=== PATIENT | female | born 1950 | race Caucasian/White ===

== ENCOUNTER 2016-10-22 06:00 | Inpatient (IN) | payer MEDICARE, OTHER ==
[2016-10-16 12:16] LABS: ASCORBIC ACID (UR NOT ORDER) NEG (NEG); BILIRUBIN, URINE NEGATIVE (NEG); KETONE, URINE NEGATIVE (NEG); LEUKOCYTE ESTERASE(NOT OR NEG (NEG); WBC (NOT ORDERED) (RFLEX) 2 (0-5)
[2016-10-16 12:52] LABS: BASOPHILS 0.6 %; BASOPHILS ABSOLUTE 0.03 10/3/uL (0.0-0.16); EOSINOPHILS 5.2 %; EOSINOPHILS ABSOLUTE 0.28 10/3/uL (0.0-0.53); HEMATOCRIT 41.8 % (36.0-48.0); HEMOGLOBIN 13.9 g/dL (12.0-16.0); IMMATURE GRANULOCYTES 0.2 %; IMMATURE GRANULOCYTES ABSOLUTE 0.01 10/3/uL (0.0-0.11); LYMPHOCYTES 30.9 %; LYMPHOCYTES ABSOLUTE 1.68 10/3/uL (0.67-4.30); MEAN CORPUS HGB CONC 33.3 g/dL (32.0-36.0); MEAN CORPUSCULAR HEMOGLOB 33.2 pg (26.0-34.0); MEAN CORPUSCULAR VOLUME 99.8 fL (80-100); MEAN PLATELET VOLUME 11.1 fL (9.2-13.0); MONOCYTES 7.7 %; MONOCYTES ABSOLUTE 0.42 10/3/uL (0.21-1.20); NEUTROPHILS 55.4 %; NEUTROPHILS ABSOLUTE 3.01 10/3/uL (2.02-8.40); PLATELET COUNT 225 10/3/uL (150-400); RBC DISTRIBUTION WIDTH 13.3 % (12.0-16.0); RED CELL COUNT 4.19 10/6/uL (4.0-5.6); WHITE BLOOD CELLS 5.4 10/3/uL (4.5-10.5)
[2016-10-16 12:53] LABS: MANUAL DIFF NO %
[2016-10-16 13:00] LABS: INTERNATIONAL NORMAL RATI 1.1 UNITS (-); PROTIME (NOT ORD) 13.6 SEC (12.0-14.5)
[2016-10-16 13:15] LABS: % IRON SAT 27 % (20-50); A/G RATIO 1.1 (0.7-1.9); ALBUMIN 3.5 G/DL (3.5-5.0); ALKALINE PHOSPHATASE 42 U/L (45-117); BUN (BLOOD UREA NITROGEN) 20 MG/DL (6-23); CHLORIDE, SERUM 106 MMOL/L (96-112); CO2 (CARBON DIOXIDE) 26 MMOL/L (24-34); CREATININE 1.35 MG/DL (0.55-1.02); GFR AFRICAN AMERICAN 47 ML/MIN (>=60); GFR NON AFRICAN AMERICAN 41 ML/MIN (>=60); GLOBULIN 3.1 G/DL (2.5-4.1); GLUCOSE, SERUM 149 MG/DL (60-99); IRON BINDING CAPACITY 363 MCG/DL (225-410); IRON, SERUM 97 MCG/DL (35-150); POTASSIUM, SERUM 4.2 MMOL/L (3.5-5.3); SGOT(AST) 16 U/L (5-40); SGPT(ALT) 17 U/L (5-65); SODIUM, SERUM 143 MMOL/L (135-148); TOTAL BILIRUBIN 0.3 MG/DL (0-1.2); TOTAL PROTEIN 6.6 G/DL (6.0-8.5)
--- NOTE | ~2016-10-22 | CN ---
Consultation Report [facility] [address] [place]. [address] NAME: GALINDO SNOW : 49 STATUS : ADM IN PAT#: [id number] AGE: 66 ADM/REG DATE : 10/22/16 MR#: [id number] REPORT SERV DATE: 10/28/16 DICTATED BY: KOREY CISNEROS DATE: 10/28/16 REPORT STATUS : Draft TRANSCRIBED BY: MODL DATE: 10/28/16 INFECTIOUS DISEASE CONSULT DATE OF CONSULTATION: REASON FOR REFERRAL: Evaluation and treatment of possible respiratory infection. HISTORY OF PRESENT ILLNESS: The patient is a 66-year-old female. She has a history of hypertension, chronic obstructive pulmonary disease, tobacco abuse, and per the records I have here, she smoked until the time of admission. She has gastroesophageal reflux disease, chronic back pain, coronary artery disease, aortic stenosis. She developed chest pain early this year and underwent an elective cardiac cath, which showed two-vessel coronary artery disease, aortic stenosis, and some mitral valve disease. On 10/22/2016, she was admitted by Dr. Grant electively and underwent a coronary artery bypass grafting x1, aortic valve replacement, and a mitral valve repair. She received appropriate preoperative antibiotics. She was extubated postoperatively, but on 10/25/2016, she developed respiratory distress, necessitating repeat intubation and placement on the ventilator. She has remained on the ventilator since, and efforts to wean her thus far have been unsuccessful. Her chest x-rays have shown some bilateral changes suggestive of atelectasis and it does look slightly worse today. On the evening of 10/26/2016, she had a temperature to 100.5, bladder temp of 100 even at 7 o'clock in the morning on 10/27/2016, but temperatures have been under 99.8 since then bladder temp. Her white blood cell count was elevated even at admission of 11.7, went up to 16.2 postoperatively, was back down to 11.1 today with hematocrit 29.6, platelets 165, unremarkable differential. A sputum was sent in the form of a tracheal aspirate on 10/25/2016 and the gram stain showed only 10 to 25 white cells and occasional gram-positive cocci. No gram negative rods. It grew sparse Klebsiella oxytoca that was relatively sensitive. PAST MEDICAL HISTORY: Otherwise unremarkable. MEDICATIONS: She is on antibiotic at present. ALLERGIES: NO KNOWN ANTIMICROBIAL ALLERGIES. SOCIAL HISTORY: She previously lived at home with family. She is single, did smoke. Has no history of alcohol or substance abuse. FAMILY HISTORY: Noncontributory. PHYSICAL EXAMINATION: GENERAL: Ill-appearing elderly female, lying quietly in bed. She is sedated, orotracheal intubated. VITAL SIGNS: Her temperature as previously mentioned. Her present pulse is 84, respirations 26, blood pressure 94/52, her weight is 75 kg. Consultation Report [address] [address] NAME: GALINDO SNOW : 49 STATUS : ADM IN [facility]#: [id number] AGE: 66 ADM/REG DATE : 10/22/16 MR#: [id number] REPORT SERV DATE: 10/28/16 DICTATED BY: KOREY CISNEROS DATE: 10/28/16 REPORT STATUS : Draft TRANSCRIBED BY: OSKAR DATE: 10/28/16 HEENT: Sclerae are clear. Unable to visualize her mouth. NECK: Supple. LUNGS: There are bilateral respiratory wheezes and rhonchi heard diffusely in all lung rey. HEART: Regular rate and rhythm. Sternal incision looks good. ABDOMEN: Soft, nontender. Positive bowel sounds. No rashes noted. LABORATORY DATA: White blood cell count as previously described. BUN and creatinine 43 and 1.04. IMPRESSION: Respiratory distress in a postoperative patient. At this time, I doubt that she has a bacterial pneumonia and I suspect that the sputum culture is a colonization and not a true infection. She is however, very vulnerable and this will need to be watched and re- evaluated very closely. RECOMMENDATIONS: 1. We will hold antibiotics for now. 2. Her procalcitonin has been ordered. If that is elevated, we will reconsider the antibiotic decision. 3. We will follow the patient closely with you. I appreciate very much your consulting on this patient. DAILY Korey Cisneros M.D. / [id number] CC: MD Diogenes Butt
--- NOTE | ~2016-10-22 | OP ---
Record Of Operation [facility] [address] [place]. [address] NAME: GALINDO SNOW : 49 STATUS : ADM IN [facility]#: [id number] AGE: 66 ADM/REG DATE : 10/22/16 MR#: [id number] REPORT SERV DATE: 11/12/16 DICTATED BY: IHSAN PATEL DATE: 11/12/16 REPORT STATUS : Draft TRANSCRIBED BY: MODL DATE: 11/12/16 DATE OF PROCEDURE: 11/12/2016 INDICATION FOR PROCEDURE: The patient with ARDS, worsening infiltrates on mechanical ventilation, desaturation. PREOPERATIVE DIAGNOSIS: Possible healthcare-associated pneumonia. POSTOPERATIVE DIAGNOSIS: Possible healthcare-associated pneumonia. PROCEDURE NOTE: The patient was in the CV ICU. By tracheostomy, we were able to insert the bronchoscope after giving patient 100 mcg of fentanyl, placing a small amount of lidocaine down the trachea. We were able to examine the complete tracheobronchial tree for which we found some suction trauma in the right mainstem, but otherwise minimal sputum in the right lower lobe and more significant sputum on the left side. We were able to clean out this secretions, but prior to that, we went ahead and did a BAL of the left upper lobe anterior sub-basal segment. We were able to place one aliquot in that area with a return around 20 mL. Minimal fluid was left in the airway as this was suctioned. We did notice that patient had copious amount of tenacious secretions upon suctioning in the lower lobes bilaterally. PLAN: Please follow up BAL cultures and cytology. Will need to start Mucomyst along with chest PT. We will discontinue the fentanyl drip to allow the patient to be more awake. This is in hopes to increase mucociliary clearance. HFQ/MODL Ihsan Patel MD / [id number] CC: MD Diogenes Butt MD
--- NOTE | ~2016-10-22 | OP ---
Record Of Operation [facility] [address] [place]. [address] NAME: GALINDO FLORES : 49 STATUS : ADM IN PAT#: [id number] AGE: 66 ADM/REG DATE : 10/22/16 MR#: [id number] REPORT SERV DATE: 10/22/16 DICTATED BY: HORACIO PATTON DATE: 10/22/16 REPORT STATUS : Draft TRANSCRIBED BY: MODL DATE: 10/22/16 DATE OF PROCEDURE: 10/22/2016 ATTENDING PHYSICIAN: Dr. Horacio Patton. PROMOTIONS OFFICER: Jerry Cerrato. ANESTHESIOLOGIST: Dr. Lionel Gloria. REFERRING PHYSICIAN: Jose Roberto Thompson M.D., F.A.C.C. PREOPERATIVE DIAGNOSES: 1. Moderate to severe symptomatic aortic stenosis. 2. Moderate to severe mitral regurgitation. 3. Two vessel coronary artery disease. 4. Progressive angina. 5. COPD. 6. Hypertension. 7. Tobacco abuse. POSTOPERATIVE DIAGNOSES: 1. Moderate to severe symptomatic aortic stenosis. 2. Moderate to severe mitral regurgitation. 3. Two vessel coronary artery disease. 4. Progressive angina. 5. COPD. 6. Hypertension. 7. Tobacco abuse. OPERATION AND PROCEDURE PERFORMED: 1. Median sternotomy. 2. Extracorporeal circulation. 3. Elective coronary artery bypass grafting x1 with reverse greater saphenous vein graft to the LAD. A 23 mm MagnaEase aortic valve replacement. 4. Mitral valve repair with 26 mm Physio II annuloplasty ring and closure of the cleft between P2 and P3. Left atrial appendage clip. 5. Transesophageal echo. 6. Endoscopic vein harvest of the right leg. 7. Rigid external fixation of the sternum with Sternalock blue system. 8. Prevena dressing placement. COMPLICATIONS: None. TUBES AND DRAINS: Trqnox-gwmc-Xrfiep Malcolm to posterior pericardium, 32 straight mediastinal chest tube. Atrial and ventricular pacing wires. Record Of Operation [facility] [address] [place]. [address] NAME: GALINDO FLORES : 49 STATUS : ADM IN PAT#: [id number] AGE: 66 ADM/REG DATE : 10/22/16 MR#: [id number] REPORT SERV DATE: 10/22/16 DICTATED BY: HORACIO PATTON DATE: 10/22/16 REPORT STATUS : Draft TRANSCRIBED BY: MODL DATE: 10/22/16 POSTOPERATIVE CONDITION: Stable to CVICU. She was weaned from cardiopulmonary bypass on no inotropic support. INTRAOPERATIVE FINDINGS: Transesophageal echo showed severe MR. Moderate to severe aortic stenosis. Preserved EF post bypass post valve replacement. The mean gradient across the mitral valve was 1 mmHg. Post bypass, aortic valve gradient was 7 mm mean gradient. There was no perivalvular leak. The valve was well seated. DETAILS OF CARDIOPULMONARY BYPASS GRAFTIN. Graft #1, reverse greater saphenous vein graft to LAD. This was a 2 mm target with excellent flow both pre and post bypass. There was no vessel in the distal circumflex to graft. This was the area of the complete chronic total occlusion. Anatomic findings were a trileaflet aortic valve with moderately calcified leaflets in anulus. The mitral valve had slightly thickened and retracted posterior leaflet with mildly calcified mitral anulus. Mitral valve repair was accomplished with a 26 mm Physio II ring with 11 sutures, annuloplasty sutures and a closure of a cleft between P2 P3 with a 5-0 Washington-Benji suture. Aortic valve replacement was performed with a 23 mm Magna Ease with a 16 pledgeted supraannular sutures. Annuloplasty and valve replacement sutures were secured with core knot. INDICATIONS FOR PROCEDURE: Ms. Flores is a 66-year-old female with a history of progressive angina and shortness of breath who underwent cardiac catheterization which revealed approximately 50% proximal LAD lesion and this total distal occluded circumflex. In addition, she has had known aortic stenosis with progression of her disease to a valve area of approximately 1 cm2 with the velocity across the valve of 280 cm/second. Her mitral valve was found to be moderate to severely leaky on her heart catheterization with moderate leak on surface echo. The patient was seen in the preoperative clinic. Risks, benefits, and alternatives including but not limited to, bleeding, infection, stroke, , heart attack, and need for future operations were discussed with the patient. Dental extraction was performed beforehand. She was referred for her oral surgeon and the patient was taken to the operating room after her preoperative evaluation was complete. DETAILS OF PROCEDURE: The patient was brought to the operating room, placed supine on the operating room table. After satisfactory induction of general endotracheal anesthesia, she was prepped and draped in the usual sterile fashion. Working simultaneously, median sternotomy was performed while the endoscopic vein harvest was performed from the left exceed the from the right leg. Skin and subcutaneous tissues were divided. Clavipectoral fascia was divided. The sternum was divided in the midline. Hemostasis was obtained. The sternal retractor was placed. Thymic tissue was divided in the midline up to the innominate vein. Pericardium was opened. Pericardial well was created. The ascending aorta was cannulated through dual pursestring at the base of the innominate artery. Antegrade root vent cardioplegia tack was placed and a dual stage venous cannula was placed. Systemic heparinization was achieved prior to cannulation. The vein was brought up and inspected. After documentation of an adequate ACT, cardiopulmonary bypass was initiated but the heart was inspected. The LAD was an excellent target. The distal . Circumflex had no target that was revascularizable the Record Of Operation [facility] [address] [place]. [address] NAME: GALINDO FLORES : 49 STATUS : ADM IN [facility]#: [id number] AGE: 66 ADM/REG DATE : 10/22/16 MR#: [id number] REPORT SERV DATE: 10/22/16 DICTATED BY: HORACIO PATTON DATE: 10/22/16 REPORT STATUS : Draft TRANSCRIBED BY: OSKAR DATE: 10/22/16 The preoperative intraoperative ESTELA was carefully evaluated with the help of Dr. Gloria and decision was made to perform a repair of the mitral valve with a replacement of the aortic valve. Cross-clamp was brought up. The heart was arrested with cold antegrade cardioplegia and using 1.5 L of shelter cardioplegia. After arrest, the attention was turned to the left atrial appendage. The left atrial appendage was sized to a 35 mm AtriClip. An AtriClip was then applied to the base of the appendage. Two laps were placed under the heart and the LAD was opened. Vein was brought up reversed and a running continuous anastomosis was performed using 8-0 Surgipro. This was checked for hemostasis, felt to be hemostatic. The attention was then turned to the mitral valve. The Sondergaard's groove was developed and left atriotomy was performed. A self retaining retractor from Simpson was placed and the valve was inspected. The posterior leaflet appeared to be slightly retracted. There was some calcification in the anulus at the posterolateral commissure. The annulus was sized to a 26 mm Physio II annuloplasty ring. Eleven sutures were placed. Annuloplasty ring was secured and the valve was tested and there appeared to be a mild leak coming from the area of P2 P3 sub commissure. This was closed with a single 5-0 Washington-Benji suture. A Miles was placed across the valve to act as an LV vent. The left atrium was then closed in a double layer of 3-0 Prolene. Aortotomy was performed in a standard hockey-stick fashion. Aortic retraction sutures were placed and the valve was inspected. The valve is a trileaflet aortic valve with moderately to severely calcified leaflets and anulus. The valve leaflets were excised. The anulus was debrided. This was sized to a 23 mm valve. 16 sutures were placed to position the valve in the supraannular position. These were placed up through the sewing ring of the valve. Valve was lowered into position and anchored in position using cor knots. The valve was checked. It was felt to be well seated. Aortotomy was then closed using a double layer 4-0 Prolene pledgets at the corners. De-airing maneuvers performed and the proximal anastomosis was then performed distal to the aortotomy and the area of adventitia was cleared off the aorta, was incised with a with an 11 blade and enlarged with a 5.2 mm punch. The vein was cut to length, spatulated and a running continuous anastomosis was performed using 6-0 Prolene. Vein graft marker was placed. Atrial and ventricular pacing wires were placed. De-airing maneuvers were performed. The cross-clamp was removed. The patient returned to normal sinus rhythm in a paced fashion over her sinus rhythm. She was able to be weaned from cardiopulmonary bypass without incident. Prior to leaving the room, she was started on 5 mcg per kilo per minute of dobutamine. After she was weaned from cardiopulmonary bypass, protamine was administered. Hemostasis was obtained. She was decannulated. All cannulation sites were oversewn with 4- 0 Prolene. The pericardium was loosely reapproximated over the right ventricle and the ascending aorta. A 24-Slovenian Malcolm was placed in the posterior pericardium, 32-Slovenian chest tube was placed under the sternum. The sternum was then reapproximated after meticulous hemostasis was obtained using stainless steel sternal wires. Some of these were double wires. Two X plates were placed on the body of the sternum and one 180 plate was placed on the body in the manubrium and a total of twenty 14 mm screws were used. Pectoral flaps were fashioned to the edge of the sternum in order to accommodate the plates. The clavipectoral fascia was then reapproximated over the plates using running #1 StrataFix. Subcutaneous tissues were closed using running #1 StrataFix. The skin was closed using a 2-0 Quill. Prevena dressing was placed over the top of this. The patient was transferred to CVICU in critical, stable condition. Record Of Operation [facility] [address] [place]. [address] NAME: GALINDO FLORES : 49 STATUS : ADM IN [facility]#: [id number] AGE: 66 ADM/REG DATE : 10/22/16 MR#: [id number] REPORT SERV DATE: 10/22/16 DICTATED BY: HORACIO PATTON DATE: 10/22/16 REPORT STATUS : Draft TRANSCRIBED BY: OSKAR DATE: 10/22/16 [facility]/OSKAR Horacio Patton MD / [id number] CC: MD Diogenes Butt MD
--- NOTE | ~2016-10-22 | OP ---
Record Of Operation [facility] [address] [place] [address] NAME: GALINDO SNOW : 49 STATUS : ADM IN PAT#: [id number] AGE: 66 ADM/REG DATE : 10/22/16 MR#: [id number] REPORT SERV DATE: 11/15/16 DICTATED BY: IHSAN PATEL DATE: 11/14/16 REPORT STATUS : Draft TRANSCRIBED BY: MODL DATE: 11/14/16 DATE OF PROCEDURE: 11/14/2016 PROCEDURE: Central line insertion. INDICATION FOR PROCEDURE: The patient is newly septic, unclear of the current source, chest x-ray is about the same, concerned of an old PICC line, and therefore, initiation of a new central line is needed. PREOPERATIVE DIAGNOSIS: Septic shock. POSTOPERATIVE DIAGNOSIS: Septic shock. PROCEDURE NOTE: The patient was placed in the Trendelenburg position. Using an ultrasound guidance, we were able to find an adequate insertion site. We sterilized and draped the area in standard fashion, using lidocaine, we numbed up the area. We placed the finer needle underneath ultrasound guidance in the right IJ and inserted a guidewire. We then dilated and placed a triple lumen catheter with return of venous blood in all ports. We then sutured and secured this in standard fashion. Of note, due to elevated INR, we were careful in choosing the site and not the subclavian site and furthermore, emergent need for this procedure was noted. OUTCOME: Successful right IJ insertion of triple-lumen catheter. HFQ/OSKAR Ihsan Patel MD / [id number] CC: MD Diogenes Butt
--- NOTE | ~2016-10-22 | CN ---
Consultation Report [facility] [address] [place]. [address] NAME: GALINDO SNOW : 49 STATUS : ADM IN PAT#: [id number] AGE: 66 ADM/REG DATE : 10/22/16 MR#: [id number] REPORT SERV DATE: 10/24/16 DICTATED BY: JAYME ADKINS DATE: 10/24/16 REPORT STATUS : Draft TRANSCRIBED BY: MODL DATE: 10/24/16 CONSULTATION DATE OF CONSULTATION: 10/24/2016 HISTORY OF PRESENT ILLNESS: A 66-year-old white female, whom we were asked to come see by Dr. Grant because of shortness of breath and hypoxia. The patient was admitted on 10/22/2016 after she had an elective CABG x1, mitral valve repair. The patient extubated the same day after surgery. She has been having increasing oxygen requirement. She is currently on 10 L/minute high-flow nasal cannula, saturating around 91%. Chest x-ray shows some worsening pulmonary edema. She is currently getting half-normal saline at 75 mL an hour. Her in's and out's are positive, a little over 2 L since she has been in the ICU. She is not on any antibiotics, and she has not had any significant fever over the past 48 hours. She does complain of shortness of breath and having a little bit of nonproductive cough. The patient was smoking up until the time of surgery. She seems a little bit confused and being able to answer questions appropriately. I was actually not able to get much history out of her even though she was awake and maintaining her airway okay. REVIEW OF SYSTEMS: Unable to be obtained. PAST MEDICAL HISTORY: Coronary artery disease, aortic stenosis, hypertension, COPD, arthritis, GERD, back pain. SOCIAL HISTORY: One pack per day cigarettes, and she has smoked since she was a teenager. FAMILY HISTORY: Noncontributory. ALLERGIES: MORPHINE, CODEINE, AND TETANUS TOXOID. HOME MEDICATIONS: Reviewed. She is on a Ventolin inhaler at home. PHYSICAL EXAMINATION: VITAL SIGNS: Per nursing flow sheet. GENERAL: Mildly short of breath. ENT: Normocephalic and atraumatic. Pupils are equal. NECK: Trachea midline. HEART: Sinus rhythm. No murmurs. CHEST: Post-sternotomy dressing. LUNGS: Bilateral wheeze with some coarse breath sounds. GI: Soft, nontender, nondistended. EXTREMITIES: No significant edema. : Miles catheter in place with yellow urine. Consultation Report [facility] [place]. [address] NAME: GALINDO SNOW : 49 STATUS : ADM IN PAT#: [id number] AGE: 66 ADM/REG DATE : 10/22/16 MR#: [id number] REPORT SERV DATE: 10/24/16 DICTATED BY: JAYME ADKINS DATE: 10/24/16 REPORT STATUS : Draft TRANSCRIBED BY: OSKAR DATE: 10/24/16 LABORATORIES: Radiology studies reviewed. ASSESSMENT AND PLAN: 1. Postoperative hypoxia. 2. Acute pulmonary edema. 3. Atelectasis. 4. Status post CABG x1, mitral valve repair, aortic valve replacement. 5. Probable chronic obstructive pulmonary disease, continue oxygen and keep sats 90% to 92% as a goal. She is encouraged to quit smoking. She does have an incentive spirometer. We will change her nebulizer medicines from albuterol over to DuoNeb every four hours around the clock. We will have EzPAP to be done with her nebulizer treatments. We will give her Lasix 20 mg IV times two doses 12 hours apart. We will stop her IV fluids for now. We will also add Brovana and Pulmicort to her nebulizer treatments. We will follow clinically. CEP/OSKAR Jayme Adkins DO / [id number] CC: MD Diogenes Butt MD
--- NOTE | ~2016-10-22 | CN ---
Consultation Report [facility] [address] [place]. [address] NAME: GALINDO SNOW : 49 STATUS : ADM IN PAT#: [id number] AGE: 66 ADM/REG DATE : 10/22/16 MR#: [id number] REPORT SERV DATE: 10/22/16 DICTATED BY: BLAZE PRESCOTT DATE: 10/22/16 REPORT STATUS : Draft TRANSCRIBED BY: MODL DATE: 10/22/16 CARDIOLOGY CONSULTATION DATE OF CONSULTATION: 10/22/2016 REASON FOR CONSULTATION: Routine postop cardiac consultation. HISTORY OF PRESENT ILLNESS: The patient is a 66-year-old white female, who was seen by Dr. Thompson in July of this year with symptoms of progressive angina. A right and left heart catheterization on 08/06/2016 showed two-vessel coronary artery disease with CT of mid dominant left circumflex and borderline lesion in the proximal LAD. There was moderate-to- severe aortic stenosis and tqxqgrdy-zo-pfypkn mitral regurgitation with tmel-tx-zhosuskf left ventricular dysfunction. The patient is now postop aortic valve replacement, mitral valve repair, and coronary artery bypass grafting x1 to the LAD as well as ligation of left atrial appendage. Currently, the patient is hemodynamically stable and on low-dose dobutamine at 2.5 mcg/kg/minute. PAST MEDICAL HISTORY: Significant for coronary artery disease, aortic stenosis, central hypertension, chronic obstructive pulmonary disease, arthritis, and chronic back pain as well as gastroesophageal reflux disease. SOCIAL HISTORY: The patient is a one-pack per day smoker and has smoked since the age of 17. FAMILY HISTORY: Noncontributory secondary to the patient being adopted. REVIEW OF SYSTEMS: Unable to be obtained at this time because the patient is intubated and sedated. PHYSICAL EXAMINATION: VITAL SIGNS: Blood pressure is 98/54, heart rate is 79, ventricular paced. GENERAL APPEARANCE: The patient is a well-developed and well-nourished female, in no acute distress. HEENT: Unremarkable, except for ET tube in place. CHEST: Remarkable for coarse lung sounds bilaterally. CARDIOVASCULAR: PMI is nondisplaced. S1 is normal. S2 is narrowly split. No gallop is present. ABDOMEN: Soft with positive bowel sounds. EXTREMITIES: Showed no cyanosis, clubbing, or edema. SKIN: Warm and dry with no pallor or icterus. NEURO/PSYCH: The patient has just been weaned off sedation and is currently very drowsy, but opens her eyes to verbal stimuli. LABORATORY AND DIAGNOSTIC DATA: Chemistry panel shows sodium 144, potassium 3.9, BUN 20, creatinine 1.3, magnesium 3.3. Chest x-ray shows mild venous congestion and mild atelectasis, stable postsurgical changes. Consultation Report [address] [place]. [address] NAME: GALINDO SNOW : 49 STATUS : ADM IN PAT#: [id number] AGE: 66 ADM/REG DATE : 10/22/16 MR#: [id number] REPORT SERV DATE: 10/22/16 DICTATED BY: BLAZE PRESCOTT DATE: 10/22/16 REPORT STATUS : Draft TRANSCRIBED BY: OSKAR DATE: 10/22/16 IMPRESSION: 1. Nonrheumatic aortic stenosis, now postop day 0 after bioprosthetic aortic valve replacement. 2. Nonrheumatic mitral regurgitation status post mitral valve repair and ligation of the left atrial appendage. 3. Coronary artery disease status post coronary artery bypass grafting to the LAD. 4. Essential hypertension. 5. Tobacco abuse. 6. Chronic obstructive pulmonary disease. PLAN: 1. Wean ventilator and cardiac drips as tolerated. 2. Continue routine postoperative orders as per Cardiothoracic Surgery. We will continue to follow the patient with you. Thank you very much for this consultation. MALAB/OSKAR Blaze Prescott NP / [id number] CC: MD Diogenes Butt MD Steven Stubblefield, M.D., F.A.C.C.
--- NOTE | ~2016-10-22 | EEG ---
Electroencephalogram [address] [place]. [address] NAME: GALINDO SNOW : 49 STATUS : ADM IN [facility]#: [id number] AGE: 66 ADM/REG DATE : 10/22/16 MR#: [id number] REPORT SERV DATE: 11/05/16 DICTATED BY: JAMES COBOS DATE: 11/05/16 REPORT STATUS : Draft TRANSCRIBED BY: MODL DATE: 11/05/16 LOCATION OF THE PATIENT: CVICU, bed 17. EEG NUMBER: [id number]. INTERPRETING PHYSICIAN: James Cobos M.D. of neurology. REASON FOR EEG: Encephalopathy, altered mental status, rule out seizures. 23 surface electrodes, 10-20 international placement was used. The patient was initially sedated with Precedex. The sedation was discontinued at the beginning of the EEG. The background activity consisted of poorly organized, moderate to higher voltage 5 cycles per second located in the posterior head regions. Underlying slower frequencies are also noted during drowsiness and sleep. The patient was noted to be awake, drowsy, and asleep. Video recording was utilized. Photic stimulation was performed. No significant asymmetry of cerebral activity was present. EEG remained diffusely slow and disorganized. Photic stimulation did not bring out additional abnormalities. environmental monitoring technician showed sinus rhythm rate of approximately 76 beats per minute. No paroxysmal or epileptiform activity was seen during this study. No significant asymmetry of cerebral activity was present. IMPRESSION: ABNORMAL EEG CHARACTERIZED BY PRESENCE OF DIFFUSE SLOWING OF CEREBRAL ACTIVITY. ABOVE DESCRIBED PATTERN MAY REPRESENT DIFFUSE CEREBRAL DYSFUNCTION. CLINICAL CORRELATION IS RECOMMENDED. ISABEL/OSKAR James Cobos MD / [id number] CC: MD Diogenes Butt MD
--- NOTE | ~2016-10-22 | OP ---
Record Of Operation [facility] [address] [place] [address] NAME: GALINDO SNOW : 49 STATUS : ADM IN [facility]#: [id number] AGE: 66 ADM/REG DATE : 10/22/16 MR#: [id number] REPORT SERV DATE: 10/25/16 DICTATED BY: JAYME ADKINS DATE: 10/25/16 REPORT STATUS : Draft TRANSCRIBED BY: MODL DATE: 10/25/16 DATE OF PROCEDURE: 10/25/2016 DIAGNOSIS: Respiratory failure. PROCEDURE: Endotracheal intubation. DESCRIPTION: The patient was in the CVICU bed #17 at the time of the procedure. Called down because of ongoing respiratory distress and O2 desaturation despite 100% FiO2 Vapotherm. The patient was sedated with 20 mg of etomidate, hyperoxygenated between 96% to 97%. Using a MAC 4 blade, I was able to place a size 8 ET tube without any difficulty. No complications and vocal cords appear normal. Chest x-ray is pending. CEP/OSKAR Jayme Adkins DO / [id number] CC: MD Diogenes Butt MD
--- NOTE | ~2016-10-22 | DS ---
Discharge Summary [address] [place]. [address] NAME: GALINDO SNOW : 49 STATUS : DIS IN PAT#: [id number] AGE: 66 ADM/REG DATE : 10/22/16 MR#: [id number] REPORT SERV DATE: 02/05/17 DICTATED BY: HORACIO PATTON DATE: 02/05/17 REPORT STATUS : Draft TRANSCRIBED BY: MODL DATE: 02/05/17 ADMISSION DATE: 10/22/2016 DISCHARGE DATE: 11/19/2016 SUMMARY ADMITTING DIAGNOSES: 1. Moderate to severe symptomatic aortic stenosis. 2. Moderate to severe mitral regurgitation. 3. Two-vessel coronary artery disease. 4. Progressive angina. 5. Chronic obstructive pulmonary disease. 6. Hypertension. 7. Tobacco abuse. DISCHARGE DIAGNOSES: 1. Moderate to severe symptomatic aortic stenosis. 2. Moderate to severe mitral regurgitation. 3. Two-vessel coronary artery disease. 4. Progressive angina. 5. Chronic obstructive pulmonary disease. 6. Hypertension. 7. Tobacco abuse. 8. . OPERATION PROCEDURE PERFORMED: 1. Coronary artery bypass grafting x1, 23 mm MagnaEase aortic valve replacement. Mitral valve repair with 26 mm Physio II annuloplasty ring. 2. Permanent pacemaker placement. 3. Endotracheal intubation. 4. Tracheostomy. 5. Bronchoscopy. DISCHARGE MEDICATIONS: None. CONDITION AT DISCHARGE: . HOSPITAL COURSE: The patient was admitted to the hospital for an elective cardiac surgical procedure, underwent the procedure, was initially stable in the ICU, then developed progressive pulmonary failure which progressed to multi-system organ failure. The family was consulted. Their wishes were followed. They wished for Palliative Care. Palliative Care was consulted and the patient underwent comfort measures and ultimately the patient was weaned from all vasoactive substances and oxygen and ultimately was pronounced at 1635 hours on 11/19/2016. Discharge Summary [facility] [place]. [address] NAME: GALINDO SNOW : 49 STATUS : DIS IN PAT#: [id number] AGE: 66 ADM/REG DATE : 10/22/16 MR#: [id number] REPORT SERV DATE: 02/05/17 DICTATED BY: HORACIO PATTON DATE: 02/05/17 REPORT STATUS : Draft TRANSCRIBED BY: MODL DATE: 02/05/17 [facility]/MODL Horacio Patton MD / [id number] CC: MD Diogenes Butt MD
--- NOTE | ~2016-10-22 | CN ---
Consultation Report [facility] [address] [place]. [address] NAME: GALINDO FLORES : 49 STATUS : ADM IN PAT#: [id number] AGE: 66 ADM/REG DATE : 10/22/16 MR#: [id number] REPORT SERV DATE: 11/11/16 DICTATED BY: ANGIE TORRES DATE: 11/11/16 REPORT STATUS : Draft TRANSCRIBED BY: MODL DATE: 11/11/16 GI CONSULTATION DATE OF CONSULTATION: 11/09/2016 REASON FOR CONSULTATION: Protein-calorie malnutrition. HISTORY OF PRESENT ILLNESS: Ms. 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 She recently had a coronary artery bypass grafting as well as MVR and AVR performed at 10/25/2016 and had a pacer placed on 11/04/2016. She has a history of coronary artery disease, COPD, hypertension, and a history of tobacco use. She has plans for a tracheostomy tomorrow with ENT and GI has been consulted for PEG tube placement. PAST MEDICAL HISTORY: Coronary artery disease, COPD, and hypertension. PAST SURGICAL HISTORY: CABG, MVR, AVR, and pacer placement. SOCIAL HISTORY: Tobacco use. Denies any alcohol or drug use. Son, Cris Flores, is her power of personal injury attorney. . MEDICATIONS: Reviewed. ALLERGIES: REVIEWED. PHYSICAL EXAMINATION: GENERAL: The patient is a female who appears older than her stated age, on ventilator, intubated and sedated. CARDIAC: S1 and S2. LUNGS: Adventitious breath sounds. ABDOMEN: Obese and soft. Bowel sounds normoactive. LABORATORY DATA: Reviewed. IMPRESSION AND PLAN: Protein-calorie malnutrition. We will plan for PEG tube placement tomorrow. I have spoken to the patient's son, Cris Flores, and reviewed the indications of the procedure, risks, benefits, and alternatives with him. Questions and concerns were addressed. The patient will require ceftriaxone 2 g IV x1 prior to her procedure. CS/MODL Consultation Report [facility] [address] [place]. [address] NAME: GALINDO FLORES : 49 STATUS : ADM IN PAT#: [id number] AGE: 66 ADM/REG DATE : 10/22/16 MR#: [id number] REPORT SERV DATE: 11/11/16 DICTATED BY: ANGIE TORRES DATE: 11/11/16 REPORT STATUS : Draft TRANSCRIBED BY: OSKAR DATE: 11/11/16 Angie Torres MD / [id number] CC: MD Diogenes Butt MD
--- NOTE | ~2016-10-22 | CN ---
Consultation Report [facility] [address] [place]. [address] NAME: GALINDO FLORES : 49 STATUS : ADM IN [facility]#: [id number] AGE: 66 ADM/REG DATE : 10/22/16 MR#: [id number] REPORT SERV DATE: 11/17/16 DICTATED BY: ERICK KENT DATE: 11/17/16 REPORT STATUS : Draft TRANSCRIBED BY: MODL DATE: 11/17/16 NEPHROLOGY CONSULTATION DATE OF CONSULTATION: 11/17/2016 INDICATION FOR CONSULTATION: Hypernatremia, altered mental status. HISTORY OF PRESENT ILLNESS: Ms. Flores is a 66-year-old female, who was seen for hypernatremia following prolonged hospitalization after mitral valve repair, aortic valve replacement, and CABG x1 on 10/22/2016. She was extubated and had to be re-intubated postoperatively and due to severe lung disease has remained on the ventilator. She has undergone tracheostomy and PEG insertion. Her sodium is 143 on 11/11/2016, rising to 149 on 11/12/2016, and subsequently has risen slowly to 160 on 11/17/2016. She has had transient elevation of her calcium up to 10.9, which is now down to 9.4, and has had a rise in her creatinine from 0.96 on 11/13/2016 to 1.41 on 11/17/2016. She remains on ventilator trached with persistent encephalopathy. PAST MEDICAL HISTORY: Gastroesophageal reflux disease, chronic pain, COPD, type 2 diabetes mellitus, coronary artery disease, aortic stenosis. SOCIAL HISTORY: Per chart, chronic tobacco use one pack daily for forty to forty five years. FAMILY HISTORY: Unable to obtain. ALLERGIES: TO MORPHINE, CODEINE, TETANUS TOXOID PER CHART. CURRENT MEDICATIONS: Vitamin C, aspirin, Lipitor, Maxipime, Flexeril, Lanoxin, Pepcid, Lofibra, Neurontin, NovoLog insulin, Lopressor, Nitrol paste, Rythmol, Zoloft, Coumadin, Orexin, Levemir insulin, Vancomycin. REVIEW OF SYSTEMS: Unable to obtain. The patient is trached on vent. PHYSICAL EXAMINATION: GENERAL: Chronically ill appearing female, sedated on vent with trach. VITAL SIGNS: Temp 100.7 with T-max of 101.9, blood pressure 117/55, respiratory rate 28, pulse 99. HEENT: Eyes, no scleral icterus. Pupils reactive symmetrically. Nares patent. No discharge. NECK: With trach in place. Mucous membranes moist. CHEST/LUNGS: Bilateral crackles and rhonchi. CARDIAC: Irregular rhythm. Unable to appreciate murmur, gallop, or rub. ABDOMEN: Supple. PEG tube noted. No guarding, tenderness. BREAST: Not performed. PELVIC: Not performed. Consultation Report [address] [place]. [address] NAME: GALINDO FLORES : 49 STATUS : ADM IN PAT#: [id number] AGE: 66 ADM/REG DATE : 10/22/16 MR#: [id number] REPORT SERV DATE: 11/17/16 DICTATED BY: ERICK KENT DATE: 11/17/16 REPORT STATUS : Draft TRANSCRIBED BY: OSKAR DATE: 11/17/16 RECTAL: Not performed. EXTREMITIES: No edema. No calf tenderness. DERMIS: No rash. No skin lesions. NEUROLOGIC: Unable to evaluate. MUSCULOSKELETAL: No overt deformity. No joint effusion. IMPRESSION: 1. Hypernatremia. Serum sodium 160, possibly multifactorial with diuresis, IV fluids, volume depletion, and possible nephrogenic DI, from hypercalcemia. 2. Acute kidney injury. Creatinine 0.96 to 1.41, presently nonoliguric. 3. Sepsis with recent Klebsiella pneumonia. 4. Encephalopathy. 5. Postop respiratory failure, status post trach. 6. Dysphagia, status post PEG. 7. Type 2 diabetes mellitus. 8. Anemia, status post transfusion. 9. Thrombocytopenia. 10.Atrial fibrillation/sick sinus syndrome. 11.Chronic obstructive pulmonary disease. 12.Chronic pain. 13.Gastroesophageal reflux disease. 14.Recent hypercalcemia. 15.Status post aortic valve replacement, mitral valve repair, CABG x1 vessel on 10/22/2016. PLAN: 1. We will initiate free water both with D5W. Monitor blood sugar and through PEG. 2. Labs. CG/MODL Erick Kent M.D. / [id number] CC: MD Diogenes Butt MD
--- NOTE | ~2016-10-22 | CN ---
Consultation Report [address] [place]. [address] NAME: GALINDO FLORES : 49 STATUS : ADM IN PAT#: [id number] AGE: 66 ADM/REG DATE : 10/22/16 MR#: [id number] REPORT SERV DATE: 10/28/16 DICTATED BY: CESAR MAYS DATE: 10/28/16 REPORT STATUS : Draft TRANSCRIBED BY: MODL DATE: 10/28/16 CONSULTATION DATE OF CONSULTATION: 10/27/2016 REASON FOR THE VISIT: Bradycardia and tachycardia. HISTORY OF PRESENT ILLNESS: Ms. Flores is a 66-year-old female, who has just undergone surgery for CABG, mitral valve repair, and aortic valve replacement. In the postoperative period, she has had atrial fibrillation mostly with a controlled ventricular response, but also episodes of sinus bradycardia into the 40s. She still has pacemaker wires in place during surgery and she is requiring ventricular pacing at 50 beats per minute quite often. Presently, she is intubated and sedated. PAST MEDICAL HISTORY: 1. Coronary artery disease. 2. Valvular disease as above. 3. COPD. 4. Hypertension. SOCIAL HISTORY: She is a smoker. No significant alcohol use. FAMILY HISTORY: There is coronary artery disease in the family. HOME MEDICATIONS: 1. Albuterol inhaler as directed. 2. Aspirin 162 mg daily. 3. Lipitor 20 mg every night at bedtime. 4. Plavix 75 mg daily. 5. Tricor 145 mg daily. 6. Gabapentin 600 mg every four hours. 7. [place] as needed. 8. Sudafed. 9. Zoloft 50 mg at bedtime. 10.Cyclobenzaprine as directed. ALLERGIES: SHE IS ALLERGIC TO MORPHINE, CODEINE, AND TETANUS. REVIEW OF SYSTEMS: A 10 system review could not be asked secondary to the patient's intubated and sedated status. PHYSICAL EXAMINATION: VITAL SIGNS: Temperature 99.8, heart rate 62, blood pressure 102/49. Consultation Report [address] [facility] [place]. [address] NAME: GALINDO FLORES : 49 STATUS : ADM IN PAT#: [id number] AGE: 66 ADM/REG DATE : 10/22/16 MR#: [id number] REPORT SERV DATE: 10/28/16 DICTATED BY: CESAR MAYS DATE: 10/28/16 REPORT STATUS : Draft TRANSCRIBED BY: MODL DATE: 10/28/16 GENERAL: Ms. Flores is a well-developed female, who is sedated on the ventilator. She does not appear to be in any distress. HEENT: Negative. She does not appear dehydrated. NECK: Does not show any JVD. LUNGS: Have rhonchi and upper airway noises bilaterally. No wheezing. HEART: Tones are regular at this time. There is a slight murmur. ABDOMEN: The abdominal exam is negative. She has good bowel sounds. EXTREMITIES: Does not show significant edema. SKIN: Shows some bruising, but no rash. LABORATORY DATA: White blood cell count is 12, hematocrit is 30, platelet count 122. Sodium 143, potassium 4.2, BUN 45, creatinine 1.2. Telemetry that shows atrial fibrillation as well as episodes of ventricular pacing with some occasional sinus bradycardia, a little over 50 beats per minute. Disconnecting the temporary pacemaker results in sinus bradycardia in the mid 40s. IMPRESSION: 1. Atrial fibrillation, mostly controlled response post surgery. 2. Sinus bradycardia. PLAN: Ms. Flores has stable pacing wires in. When she is in atrial fibrillation, she does not have a marked rapid ventricular response. For now, she can remain on amiodarone orally as well as IV. We will leave the pacemaker set at 50 beats per minute. I would like her to start intravenous heparin for stroke prevention as soon as it is feasible from a surgical standpoint. Left atrial appendage ligation is noted. Most likely, she will require a pacemaker. However, we have time because she is otherwise stable to let her wake up, extubated, and improve overall. [facility]/MODL Cesar Mays M.D. / [id number] CC: MD Diogenes Butt MD Steven Stubblefield, M.D., F.A.C.C.
--- NOTE | ~2016-10-22 | OP ---
Record Of Operation [facility] [address] [place]. [address] NAME: GALINDO SNOW : 49 STATUS : ADM IN PAT#: [id number] AGE: 66 ADM/REG DATE : 10/22/16 MR#: [id number] REPORT SERV DATE: 11/11/16 DICTATED BY: SHIRIN MANZANO DATE: 11/11/16 REPORT STATUS : Draft TRANSCRIBED BY: MODL DATE: 11/11/16 DATE OF PROCEDURE: 11/10/2016 PREOPERATIVE DIAGNOSIS: Ventilator dependence. POSTOPERATIVE DIAGNOSIS: Ventilator dependence. OPERATIVE PROCEDURE PERFORMED: Tracheostomy. INDICATIONS AND SIGNIFICANT HISTORY: The patient is a 66-year-old female, who has recently undergone coronary artery bypass grafting along with valve replacement and has continued required ventilator support. She was felt to benefit from tracheostomy placement and was scheduled for such. OPERATIVE PROCEDURE AND FINDINGS: After informed consent was obtained from the patient's son, the patient was brought to the operating room and placed on the operating table in supine position, at which point general endotracheal anesthesia was induced by the Anesthesia Service through a previously placed orotracheal tube and the skin and the neck was infiltrated with approximately 5 mL of 2% lidocaine with 1:100,000 epinephrine. A 15 blade scalpel was used to make a vertical skin incision in the midline of the neck. Subplatysmal flaps were elevated superiorly and inferiorly and strap muscles were divided in the midline. There were noted to be some large veins likely anterior jugular veins that were divided in the midline just below the platysma. These were tied with 2-0 silk suture after clamping. Dissection progressed to the midline of the neck where the thyroid isthmus was divided with bipolar cautery and anterior tracheal wall was exposed. The trachea was entered via an inferiorly based Judy-type flap between the second and third tracheal rings. Her oral endotracheal tube was withdrawn and a #6 Shiley DCT tracheostomy tube was then inserted into the stoma and anesthesia circuit was connected, placement was confirmed with return of end-tidal CO2, return of adequate tidal volume, and visualized rise and fall of chest. The patient was then turned back toward anesthesia after securing the tracheostomy tube at four quadrants with a silk suture and a Velcro trach collar and was taken to her intensive care unit bed in stable condition. COMPLICATIONS: None. ESTIMATED BLOOD LOSS: Less than 20 mL. IV FLUIDS: Per Anesthesia. DLA/MODL Shirin Manzano M.D. Record Of Operation [address] [address] NAME: GALINDO SNOW : 49 STATUS : ADM IN PAT#: [id number] AGE: 66 ADM/REG DATE : 10/22/16 MR#: [id number] REPORT SERV DATE: 11/11/16 DICTATED BY: SHIRIN MANZANO DATE: 11/11/16 REPORT STATUS : Draft TRANSCRIBED BY: OSKAR DATE: 11/11/16 / [id number] CC: MD Diogenes Butt MD
[~2016-10-22 06:00] MED LIST: ASA5GR PO; CYCLOBENZAPRINE PO; CYMBALTA30 PO; FLEX PO; LIPITOR20 PO; LORTAB 5 PO; NEUR600 PO; NORCO1 TAB PO; PLAVIX PO; SUDAFED PO; TRICOR145 PO; VENTOLIN HFA INH; ZOL50 PO
[2016-10-22 07:19] LABS: TEG - ANGLE 72.9 DEG (53-72); TEG - COAGULATION INDEX 1.7 (-3 TO 3); TEG - MAXIMUM AMPLITUDE 67.3 MM (50-70); TEG - RATE 5.9 MIN (5.0-10.0); TEG PLAVIX/EFFIENT/TICLID(ADP) 6.7 % INHIB (< 40)
[2016-10-22 07:20] LABS: MAX AMP (ADP) 63.9 MM (35-68)
[2016-10-22 13:40] LABS: BE (BASE EXCESS) -6.6 MEQ/L (0 +/- 2.5); CARBOXYHEMOGLOBIN 2.5 % (0-3); HEMOBLOGIN CONTENT 12.8 G/DL (12-16); INSTRUMENT SERIAL # 11843; METHEMOGLOBIN 0.5 % (0-3); O2 CONTENT 17.4 VOL% (18-24); PCO2 (CO2 TENSION) 44 MMHG (35-45); PO2 (O2 TENSION) 163 MMHG (79-93); pH 7.27 (7.37-7.43)
[2016-10-22 13:41] LABS: MODE SIMV; OPERATOR ID 18642; PRESSURE SUPPORT 0 cm.H2O; SAMPLE Arterial; TIDAL VOLUME 600 ML
[2016-10-22 14:02] LABS: HEMATOCRIT 36.3 % (36.0-48.0); PLATELET COUNT 131 10/3/uL (150-400)
[2016-10-22 14:09] LABS: FIBRINOGEN 267 MG/DL (230-462); INTERNATIONAL NORMAL RATI 1.6 UNITS (-); PARTIAL THROMBO TIME 37.7 SEC (22.5-37.2)
[2016-10-22 14:14] LABS: PROTIME (NOT ORD) 18.7 SEC (12.0-14.5)
[2016-10-22 14:15] LABS: BUN (BLOOD UREA NITROGEN) 20 MG/DL (6-23); CALCIUM, SERUM 8.7 MG/DL (8.5-10.4); CHLORIDE, SERUM 112 MMOL/L (96-112); GFR AFRICAN AMERICAN 49 ML/MIN (>=60); GFR NON AFRICAN AMERICAN 42 ML/MIN (>=60); SODIUM, SERUM 144 MMOL/L (135-148)
[2016-10-22 14:16] LABS: CO2 (CARBON DIOXIDE) 21 MMOL/L (24-34); GLUCOSE, SERUM 108 MG/DL (60-99)
[2016-10-22 14:17] LABS: POTASSIUM, SERUM 3.9 MMOL/L (3.5-5.3)
[2016-10-22 19:54] LABS: BE (BASE EXCESS) -5.6 MEQ/L (0 +/- 2.5); DEVICE HFNC; HCO3 (ACTUAL BICARBONATE) 20.3 MEQ/L (23-27); HEMOBLOGIN CONTENT 11.8 G/DL (12-16); INSTRUMENT SERIAL # 11843; METHEMOGLOBIN 0.3 % (0-3); O2 CONTENT 15.7 VOL% (18-24); OPERATOR ID 23712; PCO2 (CO2 TENSION) 41 MMHG (35-45); PO2 (O2 TENSION) 88 MMHG (79-93); SAMPLE Arterial; pH 7.31 (7.37-7.43)
[2016-10-22 19:58] LABS: HEMOGLOBIN 11.9 g/dL (12.0-16.0)
[2016-10-22 20:06] LABS: POTASSIUM, SERUM 4.2 MMOL/L (3.5-5.3)
[2016-10-23 03:37] LABS: MEAN CORPUS HGB CONC 33.4 g/dL (32.0-36.0); MEAN CORPUSCULAR HEMOGLOB 32.9 pg (26.0-34.0); MEAN CORPUSCULAR VOLUME 98.4 fL (80-100); MEAN PLATELET VOLUME 10.7 fL (9.2-13.0); PLATELET COUNT 95 10/3/uL (150-400); RBC DISTRIBUTION WIDTH 13.8 % (12.0-16.0)
[2016-10-23 03:38] LABS: HEMATOCRIT 29.9 % (36.0-48.0); MANUAL DIFF YES %; RED CELL COUNT 3.04 10/6/uL (4.0-5.6); WHITE BLOOD CELLS 11.7 10/3/uL (4.5-10.5)
[2016-10-23 03:46] LABS: INTERNATIONAL NORMAL RATI 1.3 UNITS (-); PROTIME (NOT ORD) 16.4 SEC (12.0-14.5)
[2016-10-23 03:55] LABS: CALCIUM, SERUM 8.2 MG/DL (8.5-10.4); CHLORIDE, SERUM 118 MMOL/L (96-112); CO2 (CARBON DIOXIDE) 21 MMOL/L (24-34); CREATININE 1.22 MG/DL (0.55-1.02); GFR AFRICAN AMERICAN 53 ML/MIN (>=60); GFR NON AFRICAN AMERICAN 46 ML/MIN (>=60); POTASSIUM, SERUM 3.9 MMOL/L (3.5-5.3); SODIUM, SERUM 150 MMOL/L (135-148)
[2016-10-23 03:58] LABS: BUN (BLOOD UREA NITROGEN) 25 MG/DL (6-23); GLUCOSE, SERUM 72 MG/DL (60-99)
[2016-10-23 04:02] LABS: BAND NEUTROPHILS 7 %; IMMATURE GRANS ABSOLUTE (CALC) 0.59 10/3/uL (0.0-0.11); LYMPHOCYTES 5 %; LYMPHOCYTES ABSOLUTE (CALC) 0.59 10/3/uL (0.67-4.30); METAMYELOCYTES 1 %; MONOCYTES 4 %; MONOCYTES ABSOLUTE (CALC) 0.47 10/3/uL (0.21-1.20); MYELOCYTES 4 %; NEUTROPHILS ABSOLUTE (CALC) 10.06 10/3/uL (2.02-8.40); PLATELET ESTIMATE DEC (ADEQUATE); RBC MORPHOLOGY NORM (NORMAL); SEGMENTED NEUTROPHIL (0) 79 %; TOTAL NUCLEATED CELLS 100
[2016-10-23 15:33] LABS: HEMOGLOBIN 11.1 g/dL (12.0-16.0)
[2016-10-23 15:35] LABS: HEMATOCRIT 33.7 % (36.0-48.0)
[2016-10-23 15:42] LABS: POTASSIUM, SERUM 4.5 MMOL/L (3.5-5.3)
[2016-10-24 04:16] LABS: BASOPHILS 0.1 %; BASOPHILS ABSOLUTE 0.01 10/3/uL (0.0-0.16); EOSINOPHILS 0 %; HEMATOCRIT 30.7 % (36.0-48.0); HEMOGLOBIN 10.3 g/dL (12.0-16.0); IMMATURE GRANULOCYTES 0.2 %; IMMATURE GRANULOCYTES ABSOLUTE 0.03 10/3/uL (0.0-0.11); LYMPHOCYTES 7.4 %; MEAN CORPUS HGB CONC 33.6 g/dL (32.0-36.0); MEAN CORPUSCULAR HEMOGLOB 33.1 pg (26.0-34.0); MEAN CORPUSCULAR VOLUME 98.7 fL (80-100); MEAN PLATELET VOLUME 12.4 fL (9.2-13.0); MONOCYTES 9.2 %; MONOCYTES ABSOLUTE 1.36 10/3/uL (0.21-1.20); NEUTROPHILS 83.1 %; NEUTROPHILS ABSOLUTE 12.35 10/3/uL (2.02-8.40); PLATELET COUNT 112 10/3/uL (150-400); RED CELL COUNT 3.11 10/6/uL (4.0-5.6); WHITE BLOOD CELLS 14.9 10/3/uL (4.5-10.5)
[2016-10-24 04:17] LABS: MANUAL DIFF NO %
[2016-10-24 04:29] LABS: BUN (BLOOD UREA NITROGEN) 43 MG/DL (6-23); CALCIUM, SERUM 8.3 MG/DL (8.5-10.4); CHLORIDE, SERUM 109 MMOL/L (96-112); CO2 (CARBON DIOXIDE) 20 MMOL/L (24-34); CREATININE 1.61 MG/DL (0.55-1.02); GFR AFRICAN AMERICAN 38 ML/MIN (>=60); GFR NON AFRICAN AMERICAN 33 ML/MIN (>=60); GLUCOSE, SERUM 143 MG/DL (60-99); POTASSIUM, SERUM 4.3 MMOL/L (3.5-5.3); SODIUM, SERUM 142 MMOL/L (135-148)
[2016-10-24 21:46] LABS: ALLENS TEST Pos; BE (BASE EXCESS) -8.1 MEQ/L (0 +/- 2.5); CARBOXYHEMOGLOBIN 0.5 % (0-3); DEVICE HFNC; HCO3 (ACTUAL BICARBONATE) 15.9 MEQ/L (23-27); HEMOBLOGIN CONTENT 11.5 G/DL (12-16); INSTRUMENT SERIAL # 11843; METHEMOGLOBIN 0.3 % (0-3); O2 CONTENT 14.6 VOL% (18-24); OPERATOR ID 32193; PCO2 (CO2 TENSION) 28 MMHG (35-45); PO2 (O2 TENSION) 68 MMHG (79-93); SAMPLE Arterial; pH 7.37 (7.37-7.43)
[2016-10-24 22:19] LABS: BASOPHILS 0 %; EOSINOPHILS 0 %; HEMATOCRIT 32.2 % (36.0-48.0); HEMOGLOBIN 10.5 g/dL (12.0-16.0); IMMATURE GRANULOCYTES 0.4 %; IMMATURE GRANULOCYTES ABSOLUTE 0.06 10/3/uL (0.0-0.11); LYMPHOCYTES 6.6 %; LYMPHOCYTES ABSOLUTE 1.07 10/3/uL (0.67-4.30); MEAN CORPUS HGB CONC 32.6 g/dL (32.0-36.0); MEAN CORPUSCULAR HEMOGLOB 31.9 pg (26.0-34.0); MEAN CORPUSCULAR VOLUME 97.9 fL (80-100); MEAN PLATELET VOLUME 12.5 fL (9.2-13.0); MONOCYTES 10.4 %; MONOCYTES ABSOLUTE 1.69 10/3/uL (0.21-1.20); NEUTROPHILS 82.6 %; NEUTROPHILS ABSOLUTE 13.36 10/3/uL (2.02-8.40); PLATELET COUNT 106 10/3/uL (150-400); RBC DISTRIBUTION WIDTH 13.9 % (12.0-16.0); RED CELL COUNT 3.29 10/6/uL (4.0-5.6); WHITE BLOOD CELLS 16.2 10/3/uL (4.5-10.5)
[2016-10-24 22:20] LABS: MANUAL DIFF NO %
[2016-10-24 22:26] LABS: BUN (BLOOD UREA NITROGEN) 46 MG/DL (6-23); CALCIUM, SERUM 8.7 MG/DL (8.5-10.4); CHLORIDE, SERUM 108 MMOL/L (96-112); CO2 (CARBON DIOXIDE) 20 MMOL/L (24-34); CREATININE 1.33 MG/DL (0.55-1.02); GFR AFRICAN AMERICAN 48 ML/MIN (>=60); GFR NON AFRICAN AMERICAN 41 ML/MIN (>=60); GLUCOSE, SERUM 168 MG/DL (60-99); POTASSIUM, SERUM 4.6 MMOL/L (3.5-5.3); SODIUM, SERUM 141 MMOL/L (135-148)
[2016-10-25 01:45] LABS: ALLENS TEST Pos; DEVICE VAPOTHERM 40L; HCO3 (ACTUAL BICARBONATE) 18.5 MEQ/L (23-27); HEMOBLOGIN CONTENT 11.7 G/DL (12-16); INSTRUMENT SERIAL # 11843; METHEMOGLOBIN 0.2 % (0-3); O2 CONTENT 15.7 VOL% (18-24); OPERATOR ID 32193; PCO2 (CO2 TENSION) 33 MMHG (35-45); PO2 (O2 TENSION) 84 MMHG (79-93); SAMPLE Arterial; pH 7.36 (7.37-7.43)
[2016-10-25 03:26] LABS: BASOPHILS 0 %; EOSINOPHILS 0 %; HEMATOCRIT 32.4 % (36.0-48.0); HEMOGLOBIN 10.8 g/dL (12.0-16.0); IMMATURE GRANULOCYTES 0.4 %; IMMATURE GRANULOCYTES ABSOLUTE 0.07 10/3/uL (0.0-0.11); LYMPHOCYTES 5.8 %; LYMPHOCYTES ABSOLUTE 0.93 10/3/uL (0.67-4.30); MEAN CORPUS HGB CONC 33.3 g/dL (32.0-36.0); MEAN CORPUSCULAR HEMOGLOB 32.4 pg (26.0-34.0); MEAN CORPUSCULAR VOLUME 97.3 fL (80-100); MEAN PLATELET VOLUME 12.2 fL (9.2-13.0); MONOCYTES 10.1 %; MONOCYTES ABSOLUTE 1.61 10/3/uL (0.21-1.20); NEUTROPHILS 83.7 %; NEUTROPHILS ABSOLUTE 13.33 10/3/uL (2.02-8.40); PLATELET COUNT 107 10/3/uL (150-400); RBC DISTRIBUTION WIDTH 13.9 % (12.0-16.0); RED CELL COUNT 3.33 10/6/uL (4.0-5.6); WHITE BLOOD CELLS 15.9 10/3/uL (4.5-10.5)
[2016-10-25 03:27] LABS: MANUAL DIFF NO %
[2016-10-25 03:40] LABS: BUN (BLOOD UREA NITROGEN) 45 MG/DL (6-23); CALCIUM, SERUM 8.9 MG/DL (8.5-10.4); CHLORIDE, SERUM 109 MMOL/L (96-112); CO2 (CARBON DIOXIDE) 20 MMOL/L (24-34); CREATININE 1.26 MG/DL (0.55-1.02); GFR AFRICAN AMERICAN 51 ML/MIN (>=60); GFR NON AFRICAN AMERICAN 44 ML/MIN (>=60); GLUCOSE, SERUM 160 MG/DL (60-99); POTASSIUM, SERUM 4.4 MMOL/L (3.5-5.3); SODIUM, SERUM 142 MMOL/L (135-148)
[2016-10-25 14:46] LABS: BE (BASE EXCESS) -6.9 MEQ/L (0 +/- 2.5); CARBOXYHEMOGLOBIN 0.2 % (0-3); DEVICE VAPOTHERM 40L; HCO3 (ACTUAL BICARBONATE) 18.1 MEQ/L (23-27); HEMOBLOGIN CONTENT 11.9 G/DL (12-16); INSTRUMENT SERIAL # 11843; METHEMOGLOBIN 0.2 % (0-3); O2 CONTENT 15.1 VOL% (18-24); OPERATOR ID 14472; PCO2 (CO2 TENSION) 35 MMHG (35-45); PO2 (O2 TENSION) 68 MMHG (79-93); SAMPLE Arterial; pH 7.33 (7.37-7.43)
[2016-10-25 21:34] LABS: ALLENS TEST Pos; BE (BASE EXCESS) -4.5 MEQ/L (0 +/- 2.5); CARBOXYHEMOGLOBIN 0.3 % (0-3); HCO3 (ACTUAL BICARBONATE) 21.2 MEQ/L (23-27); HEMOBLOGIN CONTENT 10.6 G/DL (12-16); INSTRUMENT SERIAL # 11843; METHEMOGLOBIN 0.2 % (0-3); MODE CMV; O2 CONTENT 15.4 VOL% (18-24); OPERATOR ID 32193; PCO2 (CO2 TENSION) 41 MMHG (35-45); PO2 (O2 TENSION) 270 MMHG (79-93); SAMPLE Arterial; TIDAL VOLUME 450 ML; pH 7.33 (7.37-7.43)
[2016-10-26 03:20] LABS: ALLENS TEST Pos; CARBOXYHEMOGLOBIN 0.2 % (0-3); HCO3 (ACTUAL BICARBONATE) 21.6 MEQ/L (23-27); HEMOBLOGIN CONTENT 10.9 G/DL (12-16); INSTRUMENT SERIAL # 11843; METHEMOGLOBIN 0.2 % (0-3); MODE CMV; O2 CONTENT 14.6 VOL% (18-24); OPERATOR ID 16503; PCO2 (CO2 TENSION) 33 MMHG (35-45); PO2 (O2 TENSION) 81 MMHG (79-93); SAMPLE Arterial; TIDAL VOLUME 450 ML; pH 7.43 (7.37-7.43)
[2016-10-26 03:45] LABS: BE (BASE EXCESS) -5.6 MEQ/L (0 +/- 2.5); CARBOXYHEMOGLOBIN 0.1 % (0-3); DEVICE VAPOTHERM 40L; HCO3 (ACTUAL BICARBONATE) 20.1 MEQ/L (23-27); HEMOBLOGIN CONTENT 11.2 G/DL (12-16); INSTRUMENT SERIAL # 11843; METHEMOGLOBIN 0.3 % (0-3); O2 CONTENT 13.7 VOL% (18-24); OPERATOR ID 14472; PCO2 (CO2 TENSION) 40 MMHG (35-45); PO2 (O2 TENSION) 61 MMHG (79-93); SAMPLE Arterial; pH 7.32 (7.37-7.43)
[2016-10-26 04:19] LABS: BASOPHILS 0.1 %; BASOPHILS ABSOLUTE 0.01 10/3/uL (0.0-0.16); EOSINOPHILS 0 %; HEMATOCRIT 29.2 % (36.0-48.0); HEMOGLOBIN 9.9 g/dL (12.0-16.0); IMMATURE GRANULOCYTES 0.5 %; IMMATURE GRANULOCYTES ABSOLUTE 0.05 10/3/uL (0.0-0.11); LYMPHOCYTES 12.6 %; LYMPHOCYTES ABSOLUTE 1.38 10/3/uL (0.67-4.30); MEAN CORPUS HGB CONC 33.9 g/dL (32.0-36.0); MEAN CORPUSCULAR HEMOGLOB 32.7 pg (26.0-34.0); MEAN CORPUSCULAR VOLUME 96.4 fL (80-100); MEAN PLATELET VOLUME 12.8 fL (9.2-13.0); MONOCYTES 10.4 %; MONOCYTES ABSOLUTE 1.13 10/3/uL (0.21-1.20); NEUTROPHILS 76.4 %; NEUTROPHILS ABSOLUTE 8.34 10/3/uL (2.02-8.40); PLATELET COUNT 88 10/3/uL (150-400); RBC DISTRIBUTION WIDTH 13.8 % (12.0-16.0); RED CELL COUNT 3.03 10/6/uL (4.0-5.6); WHITE BLOOD CELLS 10.9 10/3/uL (4.5-10.5)
[2016-10-26 04:21] LABS: MANUAL DIFF NO %
[2016-10-26 04:31] LABS: BUN (BLOOD UREA NITROGEN) 48 MG/DL (6-23); CALCIUM, SERUM 8.8 MG/DL (8.5-10.4); CHLORIDE, SERUM 107 MMOL/L (96-112); CO2 (CARBON DIOXIDE) 22 MMOL/L (24-34); CREATININE 1.27 MG/DL (0.55-1.02); GFR AFRICAN AMERICAN 51 ML/MIN (>=60); GFR NON AFRICAN AMERICAN 44 ML/MIN (>=60); GLUCOSE, SERUM 129 MG/DL (60-99); POTASSIUM, SERUM 3.8 MMOL/L (3.5-5.3); SODIUM, SERUM 141 MMOL/L (135-148)
[2016-10-26 14:10] LABS: POTASSIUM, SERUM 3.6 MMOL/L (3.5-5.3)
[2016-10-26 17:43] LABS: POTASSIUM, SERUM 4.4 MMOL/L (3.5-5.3)
[2016-10-27 03:09] LABS: ALLENS TEST Pos; BE (BASE EXCESS) -2.1 MEQ/L (0 +/- 2.5); HCO3 (ACTUAL BICARBONATE) 20.7 MEQ/L (23-27); HEMOBLOGIN CONTENT 10.5 G/DL (12-16); INSTRUMENT SERIAL # 11843; METHEMOGLOBIN 0.3 % (0-3); MODE CMV; OPERATOR ID 32193; PCO2 (CO2 TENSION) 29 MMHG (35-45); PO2 (O2 TENSION) 76 MMHG (79-93); SAMPLE Arterial; TIDAL VOLUME 450 ML; pH 7.47 (7.37-7.43)
[2016-10-27 03:32] LABS: BASOPHILS 0.1 %; BASOPHILS ABSOLUTE 0.01 10/3/uL (0.0-0.16); EOSINOPHILS 0.4 %; EOSINOPHILS ABSOLUTE 0.05 10/3/uL (0.0-0.53); HEMATOCRIT 29.7 % (36.0-48.0); HEMOGLOBIN 10.2 g/dL (12.0-16.0); IMMATURE GRANULOCYTES 0.5 %; IMMATURE GRANULOCYTES ABSOLUTE 0.06 10/3/uL (0.0-0.11); LYMPHOCYTES 11.2 %; LYMPHOCYTES ABSOLUTE 1.35 10/3/uL (0.67-4.30); MEAN CORPUS HGB CONC 34.3 g/dL (32.0-36.0); MEAN CORPUSCULAR HEMOGLOB 33.1 pg (26.0-34.0); MEAN CORPUSCULAR VOLUME 96.4 fL (80-100); MEAN PLATELET VOLUME 11.9 fL (9.2-13.0); MONOCYTES 15.2 %; MONOCYTES ABSOLUTE 1.84 10/3/uL (0.21-1.20); NEUTROPHILS 72.6 %; NEUTROPHILS ABSOLUTE 8.78 10/3/uL (2.02-8.40); RED CELL COUNT 3.08 10/6/uL (4.0-5.6); WHITE BLOOD CELLS 12.1 10/3/uL (4.5-10.5)
[2016-10-27 03:33] LABS: MANUAL DIFF NO %; PLATELET COUNT 122 10/3/uL (150-400)
[2016-10-27 03:45] LABS: BUN (BLOOD UREA NITROGEN) 45 MG/DL (6-23); CALCIUM, SERUM 8.6 MG/DL (8.5-10.4); CHLORIDE, SERUM 108 MMOL/L (96-112); CO2 (CARBON DIOXIDE) 25 MMOL/L (24-34); CREATININE 1.19 MG/DL (0.55-1.02); GFR AFRICAN AMERICAN 55 ML/MIN (>=60); GFR NON AFRICAN AMERICAN 47 ML/MIN (>=60); GLUCOSE, SERUM 124 MG/DL (60-99); POTASSIUM, SERUM 4.2 MMOL/L (3.5-5.3); SODIUM, SERUM 143 MMOL/L (135-148)
[2016-10-27 14:34] LABS: POTASSIUM, SERUM 4.3 MMOL/L (3.5-5.3)
[2016-10-28 04:05] LABS: BASOPHILS 0.1 %; BASOPHILS ABSOLUTE 0.01 10/3/uL (0.0-0.16); EOSINOPHILS 0.5 %; EOSINOPHILS ABSOLUTE 0.06 10/3/uL (0.0-0.53); HEMATOCRIT 29.6 % (36.0-48.0); HEMOGLOBIN 9.9 g/dL (12.0-16.0); IMMATURE GRANULOCYTES 0.6 %; IMMATURE GRANULOCYTES ABSOLUTE 0.07 10/3/uL (0.0-0.11); LYMPHOCYTES 6.9 %; LYMPHOCYTES ABSOLUTE 0.76 10/3/uL (0.67-4.30); MEAN CORPUS HGB CONC 33.4 g/dL (32.0-36.0); MEAN CORPUSCULAR VOLUME 95.8 fL (80-100); MEAN PLATELET VOLUME 11.3 fL (9.2-13.0); MONOCYTES 13.2 %; MONOCYTES ABSOLUTE 1.46 10/3/uL (0.21-1.20); NEUTROPHILS 78.7 %; NEUTROPHILS ABSOLUTE 8.72 10/3/uL (2.02-8.40); NUCLEATED RED BLOOD CELLS 1.3 /100WBC (0-0); RBC DISTRIBUTION WIDTH 14.2 % (12.0-16.0); RED CELL COUNT 3.09 10/6/uL (4.0-5.6); WHITE BLOOD CELLS 11.1 10/3/uL (4.5-10.5)
[2016-10-28 04:07] LABS: MANUAL DIFF NO %; PLATELET COUNT 165 10/3/uL (150-400)
[2016-10-28 04:08] LABS: BUN (BLOOD UREA NITROGEN) 43 MG/DL (6-23); CALCIUM, SERUM 8.6 MG/DL (8.5-10.4); CHLORIDE, SERUM 104 MMOL/L (96-112); CO2 (CARBON DIOXIDE) 26 MMOL/L (24-34); CREATININE 1.04 MG/DL (0.55-1.02); GFR AFRICAN AMERICAN 64 ML/MIN (>=60); GFR NON AFRICAN AMERICAN 56 ML/MIN (>=60); GLUCOSE, SERUM 120 MG/DL (60-99); POTASSIUM, SERUM 4.4 MMOL/L (3.5-5.3); SODIUM, SERUM 142 MMOL/L (135-148)
[2016-10-28 04:12] LABS: ALLENS TEST Pos; BE (BASE EXCESS) -1.2 MEQ/L (0 +/- 2.5); CARBOXYHEMOGLOBIN 0.1 % (0-3); HCO3 (ACTUAL BICARBONATE) 22.6 MEQ/L (23-27); HEMOBLOGIN CONTENT 10.7 G/DL (12-16); INSTRUMENT SERIAL # 11843; METHEMOGLOBIN 0.2 % (0-3); MODE CMV; O2 CONTENT 14.3 VOL% (18-24); OPERATOR ID 32193; PCO2 (CO2 TENSION) 34 MMHG (35-45); PO2 (O2 TENSION) 80 MMHG (79-93); SAMPLE Arterial; TIDAL VOLUME 450 ML; pH 7.44 (7.37-7.43)
[2016-10-29 03:34] LABS: BASOPHILS 0.1 %; BASOPHILS ABSOLUTE 0.01 10/3/uL (0.0-0.16); EOSINOPHILS 2.5 %; EOSINOPHILS ABSOLUTE 0.28 10/3/uL (0.0-0.53); HEMATOCRIT 28.5 % (36.0-48.0); HEMOGLOBIN 9.6 g/dL (12.0-16.0); IMMATURE GRANULOCYTES 0.9 %; LYMPHOCYTES 7.9 %; MEAN CORPUS HGB CONC 33.7 g/dL (32.0-36.0); MEAN CORPUSCULAR HEMOGLOB 32.1 pg (26.0-34.0); MEAN CORPUSCULAR VOLUME 95.3 fL (80-100); MEAN PLATELET VOLUME 10.8 fL (9.2-13.0); MONOCYTES 15.9 %; MONOCYTES ABSOLUTE 1.81 10/3/uL (0.21-1.20); NEUTROPHILS 72.7 %; NEUTROPHILS ABSOLUTE 8.28 10/3/uL (2.02-8.40); PLATELET COUNT 193 10/3/uL (150-400); RBC DISTRIBUTION WIDTH 14.2 % (12.0-16.0); RED CELL COUNT 2.99 10/6/uL (4.0-5.6); WHITE BLOOD CELLS 11.4 10/3/uL (4.5-10.5)
[2016-10-29 03:35] LABS: MANUAL DIFF NO %
[2016-10-29 03:39] LABS: BE (BASE EXCESS) -1.2 MEQ/L (0 +/- 2.5); HCO3 (ACTUAL BICARBONATE) 22.1 MEQ/L (23-27); HEMOBLOGIN CONTENT 10.2 G/DL (12-16); INSTRUMENT SERIAL # 11843; METHEMOGLOBIN 0.3 % (0-3); O2 CONTENT 13.8 VOL% (18-24); PCO2 (CO2 TENSION) 32 MMHG (35-45); PO2 (O2 TENSION) 84 MMHG (79-93); pH 7.46 (7.37-7.43)
[2016-10-29 03:40] LABS: MODE CMV; OPERATOR ID 23712; SAMPLE Arterial; TIDAL VOLUME 450 ML
[2016-10-29 03:42] LABS: PARTIAL THROMBO TIME 58.2 SEC (22.5-37.2)
[2016-10-29 03:48] LABS: CALCIUM, SERUM 8.5 MG/DL (8.5-10.4); CHLORIDE, SERUM 107 MMOL/L (96-112); CO2 (CARBON DIOXIDE) 25 MMOL/L (24-34); CREATININE 0.83 MG/DL (0.55-1.02); GFR AFRICAN AMERICAN 85 ML/MIN (>=60); GFR NON AFRICAN AMERICAN 73 ML/MIN (>=60); GLUCOSE, SERUM 140 MG/DL (60-99); POTASSIUM, SERUM 4.1 MMOL/L (3.5-5.3); SODIUM, SERUM 143 MMOL/L (135-148)
[2016-10-29 03:51] LABS: BUN (BLOOD UREA NITROGEN) 34 MG/DL (6-23)
[2016-10-29 17:10] LABS: BASOPHILS 0.1 %; BASOPHILS ABSOLUTE 0.01 10/3/uL (0.0-0.16); EOSINOPHILS 1.8 %; HEMATOCRIT 25.9 % (36.0-48.0); HEMOGLOBIN 8.8 g/dL (12.0-16.0); IMMATURE GRANULOCYTES 0.8 %; IMMATURE GRANULOCYTES ABSOLUTE 0.09 10/3/uL (0.0-0.11); LYMPHOCYTES 6.6 %; LYMPHOCYTES ABSOLUTE 0.75 10/3/uL (0.67-4.30); MANUAL DIFF NO %; MEAN CORPUSCULAR HEMOGLOB 32.4 pg (26.0-34.0); MEAN CORPUSCULAR VOLUME 95.2 fL (80-100); MEAN PLATELET VOLUME 10.6 fL (9.2-13.0); MONOCYTES 15.6 %; MONOCYTES ABSOLUTE 1.78 10/3/uL (0.21-1.20); NEUTROPHILS 75.1 %; NEUTROPHILS ABSOLUTE 8.56 10/3/uL (2.02-8.40); NUCLEATED RED BLOOD CELLS 0.9 /100WBC (0-0); PLATELET COUNT 204 10/3/uL (150-400); RBC DISTRIBUTION WIDTH 14.3 % (12.0-16.0); RED CELL COUNT 2.72 10/6/uL (4.0-5.6); WHITE BLOOD CELLS 11.4 10/3/uL (4.5-10.5)
[2016-10-29 17:20] LABS: BUN (BLOOD UREA NITROGEN) 29 MG/DL (6-23); CHLORIDE, SERUM 109 MMOL/L (96-112); CO2 (CARBON DIOXIDE) 24 MMOL/L (24-34); CREATININE 0.73 MG/DL (0.55-1.02); GFR AFRICAN AMERICAN 99 ML/MIN (>=60); GFR NON AFRICAN AMERICAN 85 ML/MIN (>=60); GLUCOSE, SERUM 118 MG/DL (60-99); POTASSIUM, SERUM 3.8 MMOL/L (3.5-5.3); SODIUM, SERUM 143 MMOL/L (135-148)
[2016-10-29 17:21] LABS: CALCIUM, SERUM 7.5 MG/DL (8.5-10.4)
[2016-10-30 04:02] LABS: BASOPHILS 0 %; EOSINOPHILS ABSOLUTE 0.22 10/3/uL (0.0-0.53); HEMATOCRIT 24.9 % (36.0-48.0); HEMOGLOBIN 8.5 g/dL (12.0-16.0); IMMATURE GRANULOCYTES 0.9 %; LYMPHOCYTES ABSOLUTE 0.99 10/3/uL (0.67-4.30); MEAN CORPUS HGB CONC 34.1 g/dL (32.0-36.0); MEAN CORPUSCULAR HEMOGLOB 32.4 pg (26.0-34.0); MEAN PLATELET VOLUME 10.5 fL (9.2-13.0); MONOCYTES 13.6 %; NEUTROPHILS 74.5 %; NEUTROPHILS ABSOLUTE 8.22 10/3/uL (2.02-8.40); PLATELET COUNT 210 10/3/uL (150-400); RBC DISTRIBUTION WIDTH 14.1 % (12.0-16.0); RED CELL COUNT 2.62 10/6/uL (4.0-5.6)
[2016-10-30 04:06] LABS: MANUAL DIFF NO %
[2016-10-30 04:08] LABS: CALCIUM, SERUM 8.1 MG/DL (8.5-10.4); CHLORIDE, SERUM 107 MMOL/L (96-112); CO2 (CARBON DIOXIDE) 26 MMOL/L (24-34); CREATININE 0.89 MG/DL (0.55-1.02); GFR AFRICAN AMERICAN 78 ML/MIN (>=60); GFR NON AFRICAN AMERICAN 67 ML/MIN (>=60); POTASSIUM, SERUM 3.6 MMOL/L (3.5-5.3); SODIUM, SERUM 143 MMOL/L (135-148)
[2016-10-30 04:09] LABS: BUN (BLOOD UREA NITROGEN) 35 MG/DL (6-23); GLUCOSE, SERUM 142 MG/DL (60-99)
[2016-10-30 05:56] LABS: PHOSPHORUS, SERUM 4.2 MG/DL (2.5-4.5)
[2016-10-30 17:44] LABS: BUN (BLOOD UREA NITROGEN) 40 MG/DL (6-23); CHLORIDE, SERUM 106 MMOL/L (96-112); CO2 (CARBON DIOXIDE) 26 MMOL/L (24-34); CREATININE 0.89 MG/DL (0.55-1.02); GFR AFRICAN AMERICAN 78 ML/MIN (>=60); GFR NON AFRICAN AMERICAN 67 ML/MIN (>=60); GLUCOSE, SERUM 163 MG/DL (60-99); POTASSIUM, SERUM 3.9 MMOL/L (3.5-5.3); SODIUM, SERUM 141 MMOL/L (135-148)
[2016-10-31 03:40] LABS: ALLENS TEST Pos; CARBOXYHEMOGLOBIN 0.6 % (0-3); HCO3 (ACTUAL BICARBONATE) 23.8 MEQ/L (23-27); HEMOBLOGIN CONTENT 9.1 G/DL (12-16); INSTRUMENT SERIAL # 11843; METHEMOGLOBIN 0.4 % (0-3); MODE CMV; O2 CONTENT 12.3 VOL% (18-24); OPERATOR ID 31061; PCO2 (CO2 TENSION) 35 MMHG (35-45); PO2 (O2 TENSION) 86 MMHG (79-93); SAMPLE Arterial; TIDAL VOLUME 450 ML; pH 7.45 (7.37-7.43)
[2016-10-31 03:53] LABS: BASOPHILS 0.1 %; BASOPHILS ABSOLUTE 0.02 10/3/uL (0.0-0.16); EOSINOPHILS 3.4 %; EOSINOPHILS ABSOLUTE 0.47 10/3/uL (0.0-0.53); HEMATOCRIT 25.3 % (36.0-48.0); HEMOGLOBIN 8.4 g/dL (12.0-16.0); IMMATURE GRANULOCYTES 1.9 %; IMMATURE GRANULOCYTES ABSOLUTE 0.26 10/3/uL (0.0-0.11); LYMPHOCYTES 10.9 %; LYMPHOCYTES ABSOLUTE 1.48 10/3/uL (0.67-4.30); MANUAL DIFF NO %; MEAN CORPUS HGB CONC 33.2 g/dL (32.0-36.0); MEAN CORPUSCULAR HEMOGLOB 31.6 pg (26.0-34.0); MEAN CORPUSCULAR VOLUME 95.1 fL (80-100); MEAN PLATELET VOLUME 10.6 fL (9.2-13.0); MONOCYTES 11.2 %; MONOCYTES ABSOLUTE 1.53 10/3/uL (0.21-1.20); NEUTROPHILS 72.5 %; NEUTROPHILS ABSOLUTE 9.87 10/3/uL (2.02-8.40); PLATELET COUNT 248 10/3/uL (150-400); RBC DISTRIBUTION WIDTH 14.5 % (12.0-16.0); RED CELL COUNT 2.66 10/6/uL (4.0-5.6); WHITE BLOOD CELLS 13.6 10/3/uL (4.5-10.5)
[2016-10-31 04:00] LABS: BUN (BLOOD UREA NITROGEN) 43 MG/DL (6-23); CALCIUM, SERUM 8.3 MG/DL (8.5-10.4); CHLORIDE, SERUM 106 MMOL/L (96-112); CO2 (CARBON DIOXIDE) 25 MMOL/L (24-34); CREATININE 0.89 MG/DL (0.55-1.02); GFR AFRICAN AMERICAN 78 ML/MIN (>=60); GFR NON AFRICAN AMERICAN 67 ML/MIN (>=60); GLUCOSE, SERUM 160 MG/DL (60-99); POTASSIUM, SERUM 3.9 MMOL/L (3.5-5.3); SODIUM, SERUM 142 MMOL/L (135-148)
[2016-11-01 05:04] LABS: CHLORIDE, SERUM 107 MMOL/L (96-112); CO2 (CARBON DIOXIDE) 25 MMOL/L (24-34); CREATININE 0.77 MG/DL (0.55-1.02); GFR AFRICAN AMERICAN 93 ML/MIN (>=60); GFR NON AFRICAN AMERICAN 80 ML/MIN (>=60); PHOSPHORUS, SERUM 3.7 MG/DL (2.5-4.5); POTASSIUM, SERUM 4.2 MMOL/L (3.5-5.3); SODIUM, SERUM 141 MMOL/L (135-148)
[2016-11-01 05:05] LABS: ALBUMIN 1.6 G/DL (3.5-5.0); BUN (BLOOD UREA NITROGEN) 49 MG/DL (6-23); GLUCOSE, SERUM 110 MG/DL (60-99)
[2016-11-01 05:08] LABS: CALCIUM, SERUM 8.2 MG/DL (8.5-10.4)
[2016-11-01 05:20] LABS: BAND NEUTROPHILS 2 %; EOSINOPHILS 4 %; LYMPHOCYTES 9 %; MONOCYTES 8 %; MYELOCYTES 1 %; TOTAL NUCLEATED CELLS 100
[2016-11-01 05:21] LABS: SEGMENTED NEUTROPHIL (0) 76 %
[2016-11-01 05:24] LABS: PLATELET ESTIMATE ADQ (ADEQUATE); RBC MORPHOLOGY NORM (NORMAL)
[2016-11-01 05:26] LABS: MEAN CORPUS HGB CONC 33.7 g/dL (32.0-36.0); MEAN CORPUSCULAR HEMOGLOB 32.5 pg (26.0-34.0); MEAN CORPUSCULAR VOLUME 96.7 fL (80-100); MEAN PLATELET VOLUME 11.2 fL (9.2-13.0); PLATELET COUNT 199 10/3/uL (150-400); RBC DISTRIBUTION WIDTH 14.8 % (12.0-16.0); WHITE BLOOD CELLS 9.5 10/3/uL (4.5-10.5)
[2016-11-01 05:27] LABS: HEMATOCRIT 20.5 % (36.0-48.0); RED CELL COUNT 2.12 10/6/uL (4.0-5.6)
[2016-11-01 05:30] LABS: HEMOGLOBIN 6.9 g/dL (12.0-16.0); MANUAL DIFF YES %
[2016-11-01 07:05] LABS: PROCALCITONIN 0.73 ng/mL (<0.5)
[2016-11-01 18:56] LABS: HEMATOCRIT 27.8 % (36.0-48.0); HEMOGLOBIN 9.3 g/dL (12.0-16.0)
[2016-11-02 01:58] LABS: HEMATOCRIT 28.7 % (36.0-48.0); HEMOGLOBIN 9.5 g/dL (12.0-16.0); MEAN CORPUS HGB CONC 33.1 g/dL (32.0-36.0); MEAN CORPUSCULAR HEMOGLOB 31.5 pg (26.0-34.0); MEAN PLATELET VOLUME 10.5 fL (9.2-13.0); RBC DISTRIBUTION WIDTH 14.8 % (12.0-16.0)
[2016-11-02 01:59] LABS: PLATELET COUNT 282 10/3/uL (150-400); RED CELL COUNT 3.02 10/6/uL (4.0-5.6); WHITE BLOOD CELLS 16.6 10/3/uL (4.5-10.5)
[2016-11-02 02:00] LABS: MANUAL DIFF YES %
[2016-11-02 02:12] LABS: BUN (BLOOD UREA NITROGEN) 47 MG/DL (6-23); CALCIUM, SERUM 8.6 MG/DL (8.5-10.4); CHLORIDE, SERUM 110 MMOL/L (96-112); CO2 (CARBON DIOXIDE) 26 MMOL/L (24-34); CREATININE 0.81 MG/DL (0.55-1.02); GFR AFRICAN AMERICAN 87 ML/MIN (>=60); GFR NON AFRICAN AMERICAN 75 ML/MIN (>=60); GLUCOSE, SERUM 121 MG/DL (60-99); POTASSIUM, SERUM 4.6 MMOL/L (3.5-5.3); SODIUM, SERUM 145 MMOL/L (135-148)
[2016-11-02 02:20] LABS: BAND NEUTROPHILS 3 %; EOSINOPHILS 1 %; EOSINOPHILS ABSOLUTE (CALC) 0.17 10/3/uL (0.0-0.53); LYMPHOCYTES 15 %; LYMPHOCYTES ABSOLUTE (CALC) 2.49 10/3/uL (0.67-4.30); METAMYELOCYTES 2 %; MONOCYTES 1 %; MONOCYTES ABSOLUTE (CALC) 0.17 10/3/uL (0.21-1.20); MYELOCYTES 1 %; NEUTROPHILS ABSOLUTE (CALC) 13.28 10/3/uL (2.02-8.40); PLATELET ESTIMATE ADQ (ADEQUATE); RBC MORPHOLOGY NORM (NORMAL); SEGMENTED NEUTROPHIL (0) 77 %; TOTAL NUCLEATED CELLS 100
[2016-11-02 15:09] LABS: POTASSIUM, SERUM 4.5 MMOL/L (3.5-5.3)
[2016-11-03 03:59] LABS: HEMATOCRIT 28.7 % (36.0-48.0); HEMOGLOBIN 9.5 g/dL (12.0-16.0); MEAN CORPUS HGB CONC 33.1 g/dL (32.0-36.0); MEAN CORPUSCULAR HEMOGLOB 31.7 pg (26.0-34.0); MEAN CORPUSCULAR VOLUME 95.7 fL (80-100); MEAN PLATELET VOLUME 10.3 fL (9.2-13.0); PLATELET COUNT 291 10/3/uL (150-400); RBC DISTRIBUTION WIDTH 14.6 % (12.0-16.0); WHITE BLOOD CELLS 14.9 10/3/uL (4.5-10.5)
[2016-11-03 04:00] LABS: MANUAL DIFF YES %
[2016-11-03 04:14] LABS: CALCIUM, SERUM 9.4 MG/DL (8.5-10.4); CHLORIDE, SERUM 107 MMOL/L (96-112); CO2 (CARBON DIOXIDE) 26 MMOL/L (24-34); CREATININE 0.68 MG/DL (0.55-1.02); GFR AFRICAN AMERICAN 105 ML/MIN (>=60); GFR NON AFRICAN AMERICAN 91 ML/MIN (>=60); PHOSPHORUS, SERUM 3.5 MG/DL (2.5-4.5); POTASSIUM, SERUM 4.6 MMOL/L (3.5-5.3); SODIUM, SERUM 143 MMOL/L (135-148)
[2016-11-03 04:15] LABS: BUN (BLOOD UREA NITROGEN) 40 MG/DL (6-23); GLUCOSE, SERUM 155 MG/DL (60-99)
[2016-11-03 04:16] LABS: BE (BASE EXCESS) 0.7 MEQ/L (0 +/- 2.5); CARBOXYHEMOGLOBIN 0.4 % (0-3); HCO3 (ACTUAL BICARBONATE) 24.8 MEQ/L (23-27); INSTRUMENT SERIAL # 11843; PCO2 (CO2 TENSION) 38 MMHG (35-45); PO2 (O2 TENSION) 78 MMHG (79-93); pH 7.43 (7.37-7.43)
[2016-11-03 04:17] LABS: ALLENS TEST Pos; HEMOBLOGIN CONTENT 10.3 G/DL (12-16); METHEMOGLOBIN 0.3 % (0-3); MODE CMV; O2 CONTENT 13.7 VOL% (18-24); OPERATOR ID 16469; SAMPLE Arterial; TIDAL VOLUME 450 ML
[2016-11-03 04:25] LABS: BAND NEUTROPHILS 11 %; EOSINOPHILS 1 %; EOSINOPHILS ABSOLUTE (CALC) 0.15 10/3/uL (0.0-0.53); LYMPHOCYTES 8 %; LYMPHOCYTES ABSOLUTE (CALC) 1.19 10/3/uL (0.67-4.30); METAMYELOCYTES 3 %; MONOCYTES 6 %; MONOCYTES ABSOLUTE (CALC) 0.89 10/3/uL (0.21-1.20); MYELOCYTES 1 %; NEUTROPHILS ABSOLUTE (CALC) 12.07 10/3/uL (2.02-8.40); PLATELET ESTIMATE ADQ (ADEQUATE); SEGMENTED NEUTROPHIL (0) 70 %; TOTAL NUCLEATED CELLS 100
[2016-11-03 04:26] LABS: RBC MORPHOLOGY NORM (NORMAL)
[2016-11-03 15:35] LABS: ALBUMIN 1.9 G/DL (3.5-5.0); DIRECT BILIRUBIN 0.2 MG/DL (0.0-0.4); INDIRECT BILIRUBIN(NOT ORDER) 0.1 MG/DL (0.1-0.9); TOTAL BILIRUBIN 0.3 MG/DL (0-1.2); TOTAL PROTEIN 5.4 G/DL (6.0-8.5)
[2016-11-03 16:17] LABS: POTASSIUM, SERUM 4.3 MMOL/L (3.5-5.3)
[2016-11-04 04:11] LABS: BASOPHILS 0.3 %; BASOPHILS ABSOLUTE 0.03 10/3/uL (0.0-0.16); EOSINOPHILS 3.2 %; EOSINOPHILS ABSOLUTE 0.38 10/3/uL (0.0-0.53); HEMATOCRIT 26.1 % (36.0-48.0); HEMOGLOBIN 8.5 g/dL (12.0-16.0); IMMATURE GRANULOCYTES 2.1 %; IMMATURE GRANULOCYTES ABSOLUTE 0.25 10/3/uL (0.0-0.11); LYMPHOCYTES 14.4 %; LYMPHOCYTES ABSOLUTE 1.69 10/3/uL (0.67-4.30); MEAN CORPUS HGB CONC 32.6 g/dL (32.0-36.0); MEAN CORPUSCULAR HEMOGLOB 31.8 pg (26.0-34.0); MEAN CORPUSCULAR VOLUME 97.8 fL (80-100); MONOCYTES 7.4 %; MONOCYTES ABSOLUTE 0.86 10/3/uL (0.21-1.20); NEUTROPHILS 72.6 %; NEUTROPHILS ABSOLUTE 8.49 10/3/uL (2.02-8.40); PLATELET COUNT 274 10/3/uL (150-400); RBC DISTRIBUTION WIDTH 14.8 % (12.0-16.0); RED CELL COUNT 2.67 10/6/uL (4.0-5.6); WHITE BLOOD CELLS 11.7 10/3/uL (4.5-10.5)
[2016-11-04 04:12] LABS: MANUAL DIFF NO %
[2016-11-04 04:29] LABS: CALCIUM, SERUM 9.3 MG/DL (8.5-10.4); CHLORIDE, SERUM 109 MMOL/L (96-112); CO2 (CARBON DIOXIDE) 26 MMOL/L (24-34); CREATININE 0.68 MG/DL (0.55-1.02); GFR AFRICAN AMERICAN 105 ML/MIN (>=60); GFR NON AFRICAN AMERICAN 91 ML/MIN (>=60); POTASSIUM, SERUM 4.1 MMOL/L (3.5-5.3); SODIUM, SERUM 143 MMOL/L (135-148)
[2016-11-04 04:36] LABS: BUN (BLOOD UREA NITROGEN) 44 MG/DL (6-23); GLUCOSE, SERUM 120 MG/DL (60-99)
[2016-11-04 10:00] LABS: INTERNATIONAL NORMAL RATI 1.3 UNITS (-); PARTIAL THROMBO TIME 83.5 SEC (22.5-37.2); PROTIME (NOT ORD) 16.1 SEC (12.0-14.5)
[2016-11-05 04:08] LABS: BASOPHILS 0.4 %; BASOPHILS ABSOLUTE 0.04 10/3/uL (0.0-0.16); EOSINOPHILS 3.4 %; EOSINOPHILS ABSOLUTE 0.35 10/3/uL (0.0-0.53); HEMATOCRIT 27.2 % (36.0-48.0); HEMOGLOBIN 8.6 g/dL (12.0-16.0); IMMATURE GRANULOCYTES 1.3 %; IMMATURE GRANULOCYTES ABSOLUTE 0.13 10/3/uL (0.0-0.11); LYMPHOCYTES 10.8 %; MEAN CORPUS HGB CONC 31.6 g/dL (32.0-36.0); MEAN CORPUSCULAR HEMOGLOB 31.6 pg (26.0-34.0); MONOCYTES 11.7 %; MONOCYTES ABSOLUTE 1.19 10/3/uL (0.21-1.20); NEUTROPHILS 72.4 %; NEUTROPHILS ABSOLUTE 7.35 10/3/uL (2.02-8.40); PLATELET COUNT 250 10/3/uL (150-400); RBC DISTRIBUTION WIDTH 14.8 % (12.0-16.0); RED CELL COUNT 2.72 10/6/uL (4.0-5.6); WHITE BLOOD CELLS 10.2 10/3/uL (4.5-10.5)
[2016-11-05 04:09] LABS: MANUAL DIFF NO %
[2016-11-05 04:24] LABS: BUN (BLOOD UREA NITROGEN) 44 MG/DL (6-23); CALCIUM, SERUM 9.7 MG/DL (8.5-10.4); CHLORIDE, SERUM 108 MMOL/L (96-112); CO2 (CARBON DIOXIDE) 27 MMOL/L (24-34); CREATININE 0.77 MG/DL (0.55-1.02); GFR AFRICAN AMERICAN 93 ML/MIN (>=60); GFR NON AFRICAN AMERICAN 80 ML/MIN (>=60); GLUCOSE, SERUM 102 MG/DL (60-99); POTASSIUM, SERUM 4.1 MMOL/L (3.5-5.3); SODIUM, SERUM 145 MMOL/L (135-148)
[2016-11-05 11:34] LABS: ALLENS TEST Pos; BE (BASE EXCESS) -1.4 MEQ/L (0 +/- 2.5); CARBOXYHEMOGLOBIN 0.8 % (0-3); DEVICE NC; HCO3 (ACTUAL BICARBONATE) 24.5 MEQ/L (23-27); HEMOBLOGIN CONTENT 9.5 G/DL (12-16); INSTRUMENT SERIAL # 11843; METHEMOGLOBIN 0.4 % (0-3); O2 CONTENT 11.3 VOL% (18-24); OPERATOR ID 35188; PCO2 (CO2 TENSION) 47 MMHG (35-45); PO2 (O2 TENSION) 55 MMHG (79-93); SAMPLE Arterial; pH 7.34 (7.37-7.43)
[2016-11-05 15:44] LABS: ALLENS TEST Pos; BE (BASE EXCESS) -3.4 MEQ/L (0 +/- 2.5); CARBOXYHEMOGLOBIN 0.7 % (0-3); DEVICE NC; HCO3 (ACTUAL BICARBONATE) 23.5 MEQ/L (23-27); HEMOBLOGIN CONTENT 9.4 G/DL (12-16); INSTRUMENT SERIAL # 11843; METHEMOGLOBIN 0.5 % (0-3); O2 CONTENT 12.2 VOL% (18-24); OPERATOR ID 35859; PCO2 (CO2 TENSION) 51 MMHG (35-45); PO2 (O2 TENSION) 78 MMHG (79-93); SAMPLE Arterial; pH 7.28 (7.37-7.43)
[2016-11-05 15:59] LABS: ALBUMIN 3.3 G/DL (3.5-5.0); DIRECT BILIRUBIN 0.2 MG/DL (0.0-0.4); INDIRECT BILIRUBIN(NOT ORDER) 0.3 MG/DL (0.1-0.9); TOTAL BILIRUBIN 0.5 MG/DL (0-1.2); TOTAL PROTEIN 6.4 G/DL (6.0-8.5); ULTRASENSITIVE TSH 2.78 MCIU/ML (0.358-3.740)
[2016-11-05 17:36] LABS: ALLENS TEST Pos; BE (BASE EXCESS) -5.2 MEQ/L (0 +/- 2.5); CARBOXYHEMOGLOBIN 0.5 % (0-3); DEVICE HFNC; HCO3 (ACTUAL BICARBONATE) 22.3 MEQ/L (23-27); HEMOBLOGIN CONTENT 9.5 G/DL (12-16); INSTRUMENT SERIAL # 11843; METHEMOGLOBIN 0.3 % (0-3); O2 CONTENT 12.1 VOL% (18-24); OPERATOR ID 32214; PCO2 (CO2 TENSION) 54 MMHG (35-45); PO2 (O2 TENSION) 74 MMHG (79-93); SAMPLE Arterial; pH 7.24 (7.37-7.43)
[2016-11-05 21:21] LABS: BE (BASE EXCESS) -4.7 MEQ/L (0 +/- 2.5); HCO3 (ACTUAL BICARBONATE) 22.5 MEQ/L (23-27); INSTRUMENT SERIAL # 11843; PCO2 (CO2 TENSION) 53 MMHG (35-45); PO2 (O2 TENSION) 154 MMHG (79-93); pH 7.25 (7.37-7.43)
[2016-11-05 21:22] LABS: ALLENS TEST Pos; CARBOXYHEMOGLOBIN 0.4 % (0-3); METHEMOGLOBIN 0.5 % (0-3); MODE CMV; O2 CONTENT 12.7 VOL% (18-24); OPERATOR ID 13861; SAMPLE Arterial; TIDAL VOLUME 500 ML
[2016-11-06 06:03] LABS: BASOPHILS 0.2 %; BASOPHILS ABSOLUTE 0.02 10/3/uL (0.0-0.16); EOSINOPHILS 1.8 %; EOSINOPHILS ABSOLUTE 0.17 10/3/uL (0.0-0.53); HEMATOCRIT 25.5 % (36.0-48.0); IMMATURE GRANULOCYTES 0.7 %; IMMATURE GRANULOCYTES ABSOLUTE 0.07 10/3/uL (0.0-0.11); LYMPHOCYTES 9.8 %; LYMPHOCYTES ABSOLUTE 0.95 10/3/uL (0.67-4.30); MEAN CORPUS HGB CONC 31.4 g/dL (32.0-36.0); MEAN CORPUSCULAR HEMOGLOB 31.3 pg (26.0-34.0); MEAN CORPUSCULAR VOLUME 99.6 fL (80-100); MEAN PLATELET VOLUME 10.2 fL (9.2-13.0); MONOCYTES 10.7 %; MONOCYTES ABSOLUTE 1.04 10/3/uL (0.21-1.20); NEUTROPHILS 76.8 %; NEUTROPHILS ABSOLUTE 7.46 10/3/uL (2.02-8.40); PLATELET COUNT 233 10/3/uL (150-400); RBC DISTRIBUTION WIDTH 14.5 % (12.0-16.0); RED CELL COUNT 2.56 10/6/uL (4.0-5.6); WHITE BLOOD CELLS 9.7 10/3/uL (4.5-10.5)
[2016-11-06 06:06] LABS: MANUAL DIFF NO %
[2016-11-06 06:12] LABS: CALCIUM, SERUM 9.5 MG/DL (8.5-10.4); CHLORIDE, SERUM 106 MMOL/L (96-112); CO2 (CARBON DIOXIDE) 27 MMOL/L (24-34); CREATININE 0.87 MG/DL (0.55-1.02); GFR AFRICAN AMERICAN 80 ML/MIN (>=60); GFR NON AFRICAN AMERICAN 69 ML/MIN (>=60); GLUCOSE, SERUM 120 MG/DL (60-99); PHOSPHORUS, SERUM 4.2 MG/DL (2.5-4.5); POTASSIUM, SERUM 3.8 MMOL/L (3.5-5.3); SODIUM, SERUM 141 MMOL/L (135-148)
[2016-11-06 06:15] LABS: BUN (BLOOD UREA NITROGEN) 51 MG/DL (6-23)
[2016-11-06 20:09] LABS: POTASSIUM, SERUM 4.1 MMOL/L (3.5-5.3)
[2016-11-07 04:37] LABS: BASOPHILS 0.4 %; BASOPHILS ABSOLUTE 0.04 10/3/uL (0.0-0.16); EOSINOPHILS 3.3 %; EOSINOPHILS ABSOLUTE 0.29 10/3/uL (0.0-0.53); HEMATOCRIT 24.5 % (36.0-48.0); HEMOGLOBIN 7.9 g/dL (12.0-16.0); IMMATURE GRANULOCYTES 0.6 %; IMMATURE GRANULOCYTES ABSOLUTE 0.05 10/3/uL (0.0-0.11); LYMPHOCYTES 13.2 %; LYMPHOCYTES ABSOLUTE 1.18 10/3/uL (0.67-4.30); MANUAL DIFF NO %; MEAN CORPUS HGB CONC 32.2 g/dL (32.0-36.0); MEAN CORPUSCULAR HEMOGLOB 31.9 pg (26.0-34.0); MEAN CORPUSCULAR VOLUME 98.8 fL (80-100); MEAN PLATELET VOLUME 10.1 fL (9.2-13.0); MONOCYTES 9.9 %; MONOCYTES ABSOLUTE 0.88 10/3/uL (0.21-1.20); NEUTROPHILS 72.6 %; NEUTROPHILS ABSOLUTE 6.48 10/3/uL (2.02-8.40); PLATELET COUNT 237 10/3/uL (150-400); RBC DISTRIBUTION WIDTH 14.5 % (12.0-16.0); RED CELL COUNT 2.48 10/6/uL (4.0-5.6); WHITE BLOOD CELLS 8.9 10/3/uL (4.5-10.5)
[2016-11-07 04:49] LABS: BUN (BLOOD UREA NITROGEN) 50 MG/DL (6-23); CALCIUM, SERUM 9.4 MG/DL (8.5-10.4); CHLORIDE, SERUM 108 MMOL/L (96-112); CO2 (CARBON DIOXIDE) 27 MMOL/L (24-34); CREATININE 0.76 MG/DL (0.55-1.02); GFR AFRICAN AMERICAN 94 ML/MIN (>=60); GFR NON AFRICAN AMERICAN 81 ML/MIN (>=60); GLUCOSE, SERUM 114 MG/DL (60-99); POTASSIUM, SERUM 4.2 MMOL/L (3.5-5.3); SODIUM, SERUM 143 MMOL/L (135-148)
[2016-11-07 16:29] LABS: POTASSIUM, SERUM 4.1 MMOL/L (3.5-5.3)
[2016-11-07 22:03] LABS: POTASSIUM, SERUM 4.3 MMOL/L (3.5-5.3)
[2016-11-08 00:12] LABS: ASCORBIC ACID (UR NOT ORDER) 40 (NEG); BILIRUBIN, URINE NEGATIVE (NEG); KETONE, URINE NEGATIVE (NEG); LEUKOCYTE ESTERASE(NOT OR NEG (NEG); WBC (NOT ORDERED) (RFLEX) 1 (0-5)
[2016-11-08 01:14] LABS: PROCALCITONIN 0.23 ng/mL (<0.5)
[2016-11-08 04:27] LABS: BASOPHILS 0.4 %; BASOPHILS ABSOLUTE 0.03 10/3/uL (0.0-0.16); EOSINOPHILS 3.9 %; EOSINOPHILS ABSOLUTE 0.33 10/3/uL (0.0-0.53); HEMATOCRIT 23.5 % (36.0-48.0); HEMOGLOBIN 7.7 g/dL (12.0-16.0); IMMATURE GRANULOCYTES 0.4 %; IMMATURE GRANULOCYTES ABSOLUTE 0.03 10/3/uL (0.0-0.11); LYMPHOCYTES 11.4 %; LYMPHOCYTES ABSOLUTE 0.95 10/3/uL (0.67-4.30); MANUAL DIFF NO %; MEAN CORPUS HGB CONC 32.8 g/dL (32.0-36.0); MEAN CORPUSCULAR HEMOGLOB 32.4 pg (26.0-34.0); MEAN CORPUSCULAR VOLUME 98.7 fL (80-100); MEAN PLATELET VOLUME 10.3 fL (9.2-13.0); MONOCYTES 11.6 %; MONOCYTES ABSOLUTE 0.97 10/3/uL (0.21-1.20); NEUTROPHILS 72.3 %; NEUTROPHILS ABSOLUTE 6.05 10/3/uL (2.02-8.40); PLATELET COUNT 254 10/3/uL (150-400); RBC DISTRIBUTION WIDTH 14.7 % (12.0-16.0); RED CELL COUNT 2.38 10/6/uL (4.0-5.6); WHITE BLOOD CELLS 8.4 10/3/uL (4.5-10.5)
[2016-11-08 04:39] LABS: BUN (BLOOD UREA NITROGEN) 56 MG/DL (6-23); CALCIUM, SERUM 9.7 MG/DL (8.5-10.4); CHLORIDE, SERUM 107 MMOL/L (96-112); CO2 (CARBON DIOXIDE) 28 MMOL/L (24-34); CREATININE 0.87 MG/DL (0.55-1.02); GFR AFRICAN AMERICAN 80 ML/MIN (>=60); GFR NON AFRICAN AMERICAN 69 ML/MIN (>=60); GLUCOSE, SERUM 95 MG/DL (60-99); POTASSIUM, SERUM 4.6 MMOL/L (3.5-5.3); SODIUM, SERUM 141 MMOL/L (135-148)
[2016-11-08 07:40] LABS: BE (BASE EXCESS) -0.2 MEQ/L (0 +/- 2.5); HEMOBLOGIN CONTENT 8.3 G/DL (12-16); INSTRUMENT SERIAL # 11843; METHEMOGLOBIN 0.4 % (0-3); O2 CONTENT 10.9 VOL% (18-24); PCO2 (CO2 TENSION) 51 MMHG (35-45); PO2 (O2 TENSION) 78 MMHG (79-93); SAMPLE Arterial; pH 7.33 (7.37-7.43)
[2016-11-08 07:41] LABS: ALLENS TEST Pos; MODE CMV; TIDAL VOLUME 450 ML
[2016-11-09 03:47] LABS: BASOPHILS 0.2 %; BASOPHILS ABSOLUTE 0.02 10/3/uL (0.0-0.16); EOSINOPHILS 2.2 %; EOSINOPHILS ABSOLUTE 0.22 10/3/uL (0.0-0.53); HEMATOCRIT 22.9 % (36.0-48.0); HEMOGLOBIN 7.4 g/dL (12.0-16.0); IMMATURE GRANULOCYTES 0.3 %; IMMATURE GRANULOCYTES ABSOLUTE 0.03 10/3/uL (0.0-0.11); LYMPHOCYTES 9.3 %; LYMPHOCYTES ABSOLUTE 0.92 10/3/uL (0.67-4.30); MEAN CORPUS HGB CONC 32.3 g/dL (32.0-36.0); MEAN CORPUSCULAR HEMOGLOB 31.9 pg (26.0-34.0); MEAN CORPUSCULAR VOLUME 98.7 fL (80-100); MEAN PLATELET VOLUME 9.9 fL (9.2-13.0); MONOCYTES 8.8 %; MONOCYTES ABSOLUTE 0.87 10/3/uL (0.21-1.20); NEUTROPHILS 79.2 %; NEUTROPHILS ABSOLUTE 7.86 10/3/uL (2.02-8.40); PLATELET COUNT 233 10/3/uL (150-400); RBC DISTRIBUTION WIDTH 14.7 % (12.0-16.0); RED CELL COUNT 2.32 10/6/uL (4.0-5.6); WHITE BLOOD CELLS 9.9 10/3/uL (4.5-10.5)
[2016-11-09 03:48] LABS: MANUAL DIFF NO %
[2016-11-09 03:51] LABS: PARTIAL THROMBO TIME 87.4 SEC (22.5-37.2)
[2016-11-09 04:07] LABS: A/G RATIO 1.6 (0.7-1.9); ALBUMIN 3.9 G/DL (3.5-5.0); ALKALINE PHOSPHATASE 46 U/L (45-117); BUN (BLOOD UREA NITROGEN) 57 MG/DL (6-23); CALCIUM, SERUM 9.9 MG/DL (8.5-10.4); CHLORIDE, SERUM 104 MMOL/L (96-112); CO2 (CARBON DIOXIDE) 27 MMOL/L (24-34); CREATININE 0.84 MG/DL (0.55-1.02); GFR AFRICAN AMERICAN 83 ML/MIN (>=60); GFR NON AFRICAN AMERICAN 72 ML/MIN (>=60); GLOBULIN 2.5 G/DL (2.5-4.1); GLUCOSE, SERUM 99 MG/DL (60-99); POTASSIUM, SERUM 4.2 MMOL/L (3.5-5.3); SGOT(AST) 43 U/L (5-40); SGPT(ALT) 74 U/L (5-65); SODIUM, SERUM 142 MMOL/L (135-148); TOTAL BILIRUBIN 0.8 MG/DL (0-1.2); TOTAL PROTEIN 6.4 G/DL (6.0-8.5)
[2016-11-10 03:55] LABS: HEMATOCRIT 24.4 % (36.0-48.0); HEMOGLOBIN 7.9 g/dL (12.0-16.0); MEAN CORPUS HGB CONC 32.4 g/dL (32.0-36.0); MEAN CORPUSCULAR HEMOGLOB 31.9 pg (26.0-34.0); MEAN CORPUSCULAR VOLUME 98.4 fL (80-100); MEAN PLATELET VOLUME 10.3 fL (9.2-13.0); PLATELET COUNT 274 10/3/uL (150-400); RBC DISTRIBUTION WIDTH 14.4 % (12.0-16.0); RED CELL COUNT 2.48 10/6/uL (4.0-5.6); WHITE BLOOD CELLS 12.4 10/3/uL (4.5-10.5)
[2016-11-10 03:57] LABS: MANUAL DIFF YES %
[2016-11-10 03:58] LABS: INTERNATIONAL NORMAL RATI 1.7 UNITS (-)
[2016-11-10 03:59] LABS: PARTIAL THROMBO TIME 82.8 SEC (22.5-37.2)
[2016-11-10 04:02] LABS: PROTIME (NOT ORD) 19.6 SEC (12.0-14.5)
[2016-11-10 04:09] LABS: BUN (BLOOD UREA NITROGEN) 57 MG/DL (6-23); CALCIUM, SERUM 10.3 MG/DL (8.5-10.4); CHLORIDE, SERUM 101 MMOL/L (96-112); CREATININE 0.81 MG/DL (0.55-1.02); GFR AFRICAN AMERICAN 87 ML/MIN (>=60); GFR NON AFRICAN AMERICAN 75 ML/MIN (>=60); POTASSIUM, SERUM 3.4 MMOL/L (3.5-5.3); SODIUM, SERUM 142 MMOL/L (135-148)
[2016-11-10 04:10] LABS: CO2 (CARBON DIOXIDE) 32 MMOL/L (24-34); GLUCOSE, SERUM 126 MG/DL (60-99)
[2016-11-10 05:07] LABS: ANISOCYTOSIS 1+ (5-10/OIF) (0-5/OIF); BAND NEUTROPHILS 3 %; ELLIPTOCYTES 1+ (3-10/OIF) (0-2/OIF); EOSINOPHILS 1 %; EOSINOPHILS ABSOLUTE (CALC) 0.12 10/3/uL (0.0-0.53); HYPOCHROMIA 1+ (3-10/OIF) (0-2/OIF); LYMPHOCYTES 5 %; LYMPHOCYTES ABSOLUTE (CALC) 0.62 10/3/uL (0.67-4.30); MONOCYTES 8 %; MONOCYTES ABSOLUTE (CALC) 0.99 10/3/uL (0.21-1.20); NEUTROPHILS ABSOLUTE (CALC) 10.66 10/3/uL (2.02-8.40); PLATELET ESTIMATE ADQ (ADEQUATE); POIKILOCYTOSIS 1+ (5-10/OIF) (0-5/OIF); SEGMENTED NEUTROPHIL (0) 83 %; TOTAL NUCLEATED CELLS 100
[2016-11-10 05:08] LABS: POLYCHROMASIA 1+ (2-5/OIF) (0-1/OIF); TEARDROP SHAPED RBCS OCC (0-2/OIF)
[2016-11-11 03:29] LABS: ALLENS TEST Pos; BE (BASE EXCESS) 2.2 MEQ/L (0 +/- 2.5); CARBOXYHEMOGLOBIN 0.7 % (0-3); HCO3 (ACTUAL BICARBONATE) 29.7 MEQ/L (23-27); HEMOBLOGIN CONTENT 8.8 G/DL (12-16); INSTRUMENT SERIAL # 11843; METHEMOGLOBIN 0.3 % (0-3); MODE CMV; O2 CONTENT 11.3 VOL% (18-24); OPERATOR ID 17370; PCO2 (CO2 TENSION) 64 MMHG (35-45); PO2 (O2 TENSION) 73 MMHG (79-93); SAMPLE Arterial; TIDAL VOLUME 450 ML; pH 7.28 (7.37-7.43)
[2016-11-11 04:05] LABS: BASOPHILS 0.1 %; BASOPHILS ABSOLUTE 0.01 10/3/uL (0.0-0.16); EOSINOPHILS 0 %; HEMATOCRIT 25.1 % (36.0-48.0); HEMOGLOBIN 7.8 g/dL (12.0-16.0); IMMATURE GRANULOCYTES 0.4 %; IMMATURE GRANULOCYTES ABSOLUTE 0.05 10/3/uL (0.0-0.11); LYMPHOCYTES 2.7 %; LYMPHOCYTES ABSOLUTE 0.37 10/3/uL (0.67-4.30); MEAN CORPUS HGB CONC 31.1 g/dL (32.0-36.0); MEAN CORPUSCULAR HEMOGLOB 31.3 pg (26.0-34.0); MEAN CORPUSCULAR VOLUME 100.8 fL (80-100); MONOCYTES 8.2 %; MONOCYTES ABSOLUTE 1.13 10/3/uL (0.21-1.20); NEUTROPHILS 88.6 %; PLATELET COUNT 258 10/3/uL (150-400); RBC DISTRIBUTION WIDTH 14.4 % (12.0-16.0); RED CELL COUNT 2.49 10/6/uL (4.0-5.6); WHITE BLOOD CELLS 13.9 10/3/uL (4.5-10.5)
[2016-11-11 04:06] LABS: MANUAL DIFF NO %
[2016-11-11 04:10] LABS: INTERNATIONAL NORMAL RATI 1.7 UNITS (-); PARTIAL THROMBO TIME 30.9 SEC (22.5-37.2); PROTIME (NOT ORD) 19.8 SEC (12.0-14.5)
[2016-11-11 04:17] LABS: CALCIUM, SERUM 10.9 MG/DL (8.5-10.4); CHLORIDE, SERUM 104 MMOL/L (96-112); CO2 (CARBON DIOXIDE) 33 MMOL/L (24-34); CREATININE 0.96 MG/DL (0.55-1.02); GFR AFRICAN AMERICAN 71 ML/MIN (>=60); GFR NON AFRICAN AMERICAN 61 ML/MIN (>=60); PHOSPHORUS, SERUM 4.2 MG/DL (2.5-4.5); POTASSIUM, SERUM 4.3 MMOL/L (3.5-5.3); SODIUM, SERUM 143 MMOL/L (135-148)
[2016-11-11 04:19] LABS: BUN (BLOOD UREA NITROGEN) 70 MG/DL (6-23); GLUCOSE, SERUM 160 MG/DL (60-99)
[2016-11-11 06:01] LABS: ALLENS TEST Pos; BE (BASE EXCESS) 3.9 MEQ/L (0 +/- 2.5); CARBOXYHEMOGLOBIN 0.6 % (0-3); HEMOBLOGIN CONTENT 8.1 G/DL (12-16); INSTRUMENT SERIAL # 11843; METHEMOGLOBIN 0.4 % (0-3); MODE CMV; O2 CONTENT 11.5 VOL% (18-24); OPERATOR ID 13415; PCO2 (CO2 TENSION) 55 MMHG (35-45); PO2 (O2 TENSION) 171 MMHG (79-93); SAMPLE Arterial; TIDAL VOLUME 550 ML; pH 7.36 (7.37-7.43)
[2016-11-11 23:54] LABS: POTASSIUM, SERUM 3.2 MMOL/L (3.5-5.3)
[2016-11-12 04:16] LABS: ALLENS TEST Pos; BE (BASE EXCESS) 7.1 MEQ/L (0 +/- 2.5); CARBOXYHEMOGLOBIN 0.8 % (0-3); HCO3 (ACTUAL BICARBONATE) 31.6 MEQ/L (23-27); HEMOBLOGIN CONTENT 8.2 G/DL (12-16); INSTRUMENT SERIAL # 11843; METHEMOGLOBIN 0.4 % (0-3); MODE CMV; O2 CONTENT 10.5 VOL% (18-24); OPERATOR ID 13744; PCO2 (CO2 TENSION) 45 MMHG (35-45); PO2 (O2 TENSION) 65 MMHG (79-93); SAMPLE Arterial; TIDAL VOLUME 550 ML; pH 7.46 (7.37-7.43)
[2016-11-12 06:11] LABS: BASOPHILS 0.1 %; BASOPHILS ABSOLUTE 0.01 10/3/uL (0.0-0.16); EOSINOPHILS 0.2 %; EOSINOPHILS ABSOLUTE 0.02 10/3/uL (0.0-0.53); HEMOGLOBIN 7.3 g/dL (12.0-16.0); IMMATURE GRANULOCYTES 0.4 %; IMMATURE GRANULOCYTES ABSOLUTE 0.04 10/3/uL (0.0-0.11); LYMPHOCYTES 5.7 %; LYMPHOCYTES ABSOLUTE 0.59 10/3/uL (0.67-4.30); MEAN CORPUS HGB CONC 32.4 g/dL (32.0-36.0); MEAN CORPUSCULAR HEMOGLOB 30.8 pg (26.0-34.0); MEAN PLATELET VOLUME 9.8 fL (9.2-13.0); MONOCYTES 8.6 %; MONOCYTES ABSOLUTE 0.89 10/3/uL (0.21-1.20); NEUTROPHILS ABSOLUTE 8.84 10/3/uL (2.02-8.40); PLATELET COUNT 264 10/3/uL (150-400); RBC DISTRIBUTION WIDTH 14.6 % (12.0-16.0); RED CELL COUNT 2.37 10/6/uL (4.0-5.6); WHITE BLOOD CELLS 10.4 10/3/uL (4.5-10.5)
[2016-11-12 06:15] LABS: HEMATOCRIT 22.5 % (36.0-48.0); MANUAL DIFF NO %; MEAN CORPUSCULAR VOLUME 94.9 fL (80-100)
[2016-11-12 06:25] LABS: CALCIUM, SERUM 11.3 MG/DL (8.5-10.4); CHLORIDE, SERUM 106 MMOL/L (96-112); CO2 (CARBON DIOXIDE) 36 MMOL/L (24-34); CREATININE 0.95 MG/DL (0.55-1.02); GFR AFRICAN AMERICAN 72 ML/MIN (>=60); GFR NON AFRICAN AMERICAN 62 ML/MIN (>=60); GLUCOSE, SERUM 138 MG/DL (60-99); POTASSIUM, SERUM 3.4 MMOL/L (3.5-5.3); SODIUM, SERUM 149 MMOL/L (135-148)
[2016-11-12 06:28] LABS: BUN (BLOOD UREA NITROGEN) 83 MG/DL (6-23); PHOSPHORUS, SERUM 2.5 MG/DL (2.5-4.5)
[2016-11-12 14:27] LABS: BUN (BLOOD UREA NITROGEN) 87 MG/DL (6-23); CALCIUM, SERUM 10.8 MG/DL (8.5-10.4); CHLORIDE, SERUM 107 MMOL/L (96-112); CO2 (CARBON DIOXIDE) 36 MMOL/L (24-34); CREATININE 0.91 MG/DL (0.55-1.02); GFR AFRICAN AMERICAN 76 ML/MIN (>=60); GFR NON AFRICAN AMERICAN 65 ML/MIN (>=60); GLUCOSE, SERUM 127 MG/DL (60-99); POTASSIUM, SERUM 3.8 MMOL/L (3.5-5.3); SODIUM, SERUM 149 MMOL/L (135-148)
[2016-11-12 14:40] LABS: BD FL LYMPH (NOT ORD) 5 %; BD FL SOURCE (NOT ORD) BAL; BF BASO (NOT OF) 0 %; BF LARGE MONONUCLEAR 64 %; BF TOTAL CELL CT (NOT ORD 499 /MM3; BODY FLUID EOS (NOT ORD) 0 %; BODY FLUID RBC (NOT ORD) 1000 /MM3; BODY FLUID SEG (NOT ORD) 31 %
[2016-11-12 19:26] LABS: INTERNATIONAL NORMAL RATI 1.7 UNITS (-); PROTIME (NOT ORD) 19.8 SEC (12.0-14.5)
[2016-11-13 03:42] LABS: HEMATOCRIT 22.2 % (36.0-48.0); HEMOGLOBIN 7.1 g/dL (12.0-16.0); MEAN CORPUSCULAR HEMOGLOB 30.7 pg (26.0-34.0); MEAN CORPUSCULAR VOLUME 96.1 fL (80-100); MEAN PLATELET VOLUME 9.8 fL (9.2-13.0); PLATELET COUNT 240 10/3/uL (150-400); RBC DISTRIBUTION WIDTH 14.9 % (12.0-16.0); RED CELL COUNT 2.31 10/6/uL (4.0-5.6); WHITE BLOOD CELLS 6.6 10/3/uL (4.5-10.5)
[2016-11-13 03:43] LABS: MANUAL DIFF YES %
[2016-11-13 03:49] LABS: INTERNATIONAL NORMAL RATI 1.8 UNITS (-); PROTIME (NOT ORD) 20.5 SEC (12.0-14.5)
[2016-11-13 03:58] LABS: A/G RATIO 1.6 (0.7-1.9); ALBUMIN 4.1 G/DL (3.5-5.0); BUN (BLOOD UREA NITROGEN) 86 MG/DL (6-23); CALCIUM, SERUM 10.6 MG/DL (8.5-10.4); CHLORIDE, SERUM 108 MMOL/L (96-112); CO2 (CARBON DIOXIDE) 34 MMOL/L (24-34); CREATININE 0.96 MG/DL (0.55-1.02); GFR AFRICAN AMERICAN 71 ML/MIN (>=60); GFR NON AFRICAN AMERICAN 61 ML/MIN (>=60); GLOBULIN 2.6 G/DL (2.5-4.1); GLUCOSE, SERUM 148 MG/DL (60-99); PHOSPHORUS, SERUM 2.8 MG/DL (2.5-4.5); POTASSIUM, SERUM 3.4 MMOL/L (3.5-5.3); SGOT(AST) 43 U/L (5-40); SGPT(ALT) 51 U/L (5-65); SODIUM, SERUM 151 MMOL/L (135-148); TOTAL BILIRUBIN 1.1 MG/DL (0-1.2); TOTAL PROTEIN 6.7 G/DL (6.0-8.5)
[2016-11-13 03:59] LABS: PARTIAL THROMBO TIME 114.9 SEC (22.5-37.2)
[2016-11-13 04:00] LABS: ALKALINE PHOSPHATASE 58 U/L (45-117)
[2016-11-13 06:56] LABS: BAND NEUTROPHILS 2 %; LYMPHOCYTES 10 %; LYMPHOCYTES ABSOLUTE (CALC) 0.92 10/3/uL (0.67-4.30); MONOCYTES 8 %; MONOCYTES ABSOLUTE (CALC) 0.26 10/3/uL (0.21-1.20); NEUTROPHILS ABSOLUTE (CALC) 5.41 10/3/uL (2.02-8.40); PLATELET ESTIMATE ADQ (ADEQUATE); RBC MORPHOLOGY NORM (NORMAL); SEGMENTED NEUTROPHIL (0) 80 %; TOTAL NUCLEATED CELLS 100
[2016-11-13 21:54] LABS: BASOPHILS 0.1 %; BASOPHILS ABSOLUTE 0.02 10/3/uL (0.0-0.16); EOSINOPHILS 2.6 %; EOSINOPHILS ABSOLUTE 0.36 10/3/uL (0.0-0.53); HEMATOCRIT 28.9 % (36.0-48.0); HEMOGLOBIN 9.3 g/dL (12.0-16.0); IMMATURE GRANULOCYTES 0.4 %; IMMATURE GRANULOCYTES ABSOLUTE 0.05 10/3/uL (0.0-0.11); LYMPHOCYTES 4.1 %; LYMPHOCYTES ABSOLUTE 0.56 10/3/uL (0.67-4.30); MANUAL DIFF NO %; MEAN CORPUS HGB CONC 32.2 g/dL (32.0-36.0); MEAN CORPUSCULAR HEMOGLOB 30.8 pg (26.0-34.0); MEAN CORPUSCULAR VOLUME 95.7 fL (80-100); MEAN PLATELET VOLUME 10.1 fL (9.2-13.0); MONOCYTES 9.2 %; MONOCYTES ABSOLUTE 1.27 10/3/uL (0.21-1.20); NEUTROPHILS 83.6 %; NEUTROPHILS ABSOLUTE 11.48 10/3/uL (2.02-8.40); PLATELET COUNT 219 10/3/uL (150-400); RBC DISTRIBUTION WIDTH 17.4 % (12.0-16.0); RED CELL COUNT 3.02 10/6/uL (4.0-5.6); WHITE BLOOD CELLS 13.7 10/3/uL (4.5-10.5)
[2016-11-14 03:50] LABS: BASOPHILS 0.2 %; BASOPHILS ABSOLUTE 0.03 10/3/uL (0.0-0.16); EOSINOPHILS 3.8 %; EOSINOPHILS ABSOLUTE 0.57 10/3/uL (0.0-0.53); HEMATOCRIT 28.6 % (36.0-48.0); HEMOGLOBIN 9.2 g/dL (12.0-16.0); IMMATURE GRANULOCYTES 0.6 %; IMMATURE GRANULOCYTES ABSOLUTE 0.09 10/3/uL (0.0-0.11); LYMPHOCYTES 4.5 %; LYMPHOCYTES ABSOLUTE 0.68 10/3/uL (0.67-4.30); MEAN CORPUS HGB CONC 32.2 g/dL (32.0-36.0); MEAN CORPUSCULAR HEMOGLOB 31.1 pg (26.0-34.0); MEAN CORPUSCULAR VOLUME 96.6 fL (80-100); MEAN PLATELET VOLUME 10.3 fL (9.2-13.0); MONOCYTES 6.4 %; MONOCYTES ABSOLUTE 0.96 10/3/uL (0.21-1.20); NEUTROPHILS 84.5 %; PLATELET COUNT 187 10/3/uL (150-400); RBC DISTRIBUTION WIDTH 17.4 % (12.0-16.0); RED CELL COUNT 2.96 10/6/uL (4.0-5.6)
[2016-11-14 03:51] LABS: MANUAL DIFF NO %
[2016-11-14 03:52] LABS: INTERNATIONAL NORMAL RATI 2.3 UNITS (-)
[2016-11-14 03:54] LABS: PROTIME (NOT ORD) 24.9 SEC (12.0-14.5)
[2016-11-14 04:00] LABS: CHLORIDE, SERUM 110 MMOL/L (96-112); CO2 (CARBON DIOXIDE) 34 MMOL/L (24-34); CREATININE 1.27 MG/DL (0.55-1.02); GFR AFRICAN AMERICAN 51 ML/MIN (>=60); GFR NON AFRICAN AMERICAN 44 ML/MIN (>=60); GLUCOSE, SERUM 157 MG/DL (60-99); PHOSPHORUS, SERUM 2.8 MG/DL (2.5-4.5); POTASSIUM, SERUM 3.6 MMOL/L (3.5-5.3); SODIUM, SERUM 152 MMOL/L (135-148)
[2016-11-14 04:01] LABS: BUN (BLOOD UREA NITROGEN) 101 MG/DL (6-23)
[2016-11-14 05:14] LABS: ALLENS TEST Pos; CARBOXYHEMOGLOBIN 0.5 % (0-3); HCO3 (ACTUAL BICARBONATE) 32.6 MEQ/L (23-27); HEMOBLOGIN CONTENT 10.2 G/DL (12-16); INSTRUMENT SERIAL # 11843; METHEMOGLOBIN 0.4 % (0-3); MODE CMV; O2 CONTENT 13.2 VOL% (18-24); OPERATOR ID 32193; PCO2 (CO2 TENSION) 52 MMHG (35-45); PO2 (O2 TENSION) 70 MMHG (79-93); SAMPLE Arterial; TIDAL VOLUME 550 ML; pH 7.42 (7.37-7.43)
[2016-11-15 03:55] LABS: ALLENS TEST Pos; BE (BASE EXCESS) 6.3 MEQ/L (0 +/- 2.5); CARBOXYHEMOGLOBIN 1.3 % (0-3); HCO3 (ACTUAL BICARBONATE) 31.4 MEQ/L (23-27); HEMOBLOGIN CONTENT 10.1 G/DL (12-16); INSTRUMENT SERIAL # 11843; METHEMOGLOBIN 0.4 % (0-3); MODE CMV; O2 CONTENT 12.9 VOL% (18-24); OPERATOR ID 16503; PCO2 (CO2 TENSION) 48 MMHG (35-45); PO2 (O2 TENSION) 64 MMHG (79-93); SAMPLE Arterial; TIDAL VOLUME 550 ML; pH 7.43 (7.37-7.43)
[2016-11-15 04:00] LABS: BASOPHILS 0.2 %; BASOPHILS ABSOLUTE 0.03 10/3/uL (0.0-0.16); EOSINOPHILS 1.1 %; EOSINOPHILS ABSOLUTE 0.19 10/3/uL (0.0-0.53); HEMATOCRIT 30.5 % (36.0-48.0); HEMOGLOBIN 9.5 g/dL (12.0-16.0); IMMATURE GRANULOCYTES 0.6 %; IMMATURE GRANULOCYTES ABSOLUTE 0.11 10/3/uL (0.0-0.11); LYMPHOCYTES 3.8 %; LYMPHOCYTES ABSOLUTE 0.65 10/3/uL (0.67-4.30); MEAN CORPUS HGB CONC 31.1 g/dL (32.0-36.0); MEAN CORPUSCULAR HEMOGLOB 30.6 pg (26.0-34.0); MEAN CORPUSCULAR VOLUME 98.4 fL (80-100); MEAN PLATELET VOLUME 10.3 fL (9.2-13.0); MONOCYTES 6.1 %; MONOCYTES ABSOLUTE 1.03 10/3/uL (0.21-1.20); NEUTROPHILS 88.2 %; PLATELET COUNT 153 10/3/uL (150-400); RBC DISTRIBUTION WIDTH 16.6 % (12.0-16.0)
[2016-11-15 04:02] LABS: MANUAL DIFF NO %
[2016-11-15 04:08] LABS: PROTIME (NOT ORD) 22.1 SEC (12.0-14.5)
[2016-11-15 04:26] LABS: CALCIUM, SERUM 9.6 MG/DL (8.5-10.4); CHLORIDE, SERUM 113 MMOL/L (96-112); CO2 (CARBON DIOXIDE) 37 MMOL/L (24-34); CREATININE 1.23 MG/DL (0.55-1.02); GFR AFRICAN AMERICAN 53 ML/MIN (>=60); GFR NON AFRICAN AMERICAN 45 ML/MIN (>=60); GLUCOSE, SERUM 178 MG/DL (60-99); POTASSIUM, SERUM 3.7 MMOL/L (3.5-5.3)
[2016-11-15 04:29] LABS: BUN (BLOOD UREA NITROGEN) 114 MG/DL (6-23); PHOSPHORUS, SERUM 1.6 MG/DL (2.5-4.5)
[2016-11-15 04:30] LABS: SODIUM, SERUM 155 MMOL/L (135-148)
[2016-11-16 03:57] LABS: ALLENS TEST Pos; CARBOXYHEMOGLOBIN 0.7 % (0-3); HCO3 (ACTUAL BICARBONATE) 34.8 MEQ/L (23-27); HEMOBLOGIN CONTENT 10.2 G/DL (12-16); INSTRUMENT SERIAL # 11843; METHEMOGLOBIN 0.4 % (0-3); MODE CMV; O2 CONTENT 12.5 VOL% (18-24); OPERATOR ID 23712; PCO2 (CO2 TENSION) 62 MMHG (35-45); PO2 (O2 TENSION) 57 MMHG (79-93); SAMPLE Arterial; TIDAL VOLUME 550 ML; pH 7.37 (7.37-7.43)
[2016-11-16 04:00] LABS: BASOPHILS 0.1 %; BASOPHILS ABSOLUTE 0.03 10/3/uL (0.0-0.16); EOSINOPHILS 1.9 %; EOSINOPHILS ABSOLUTE 0.41 10/3/uL (0.0-0.53); HEMOGLOBIN 9.5 g/dL (12.0-16.0); IMMATURE GRANULOCYTES 0.8 %; IMMATURE GRANULOCYTES ABSOLUTE 0.17 10/3/uL (0.0-0.11); LYMPHOCYTES ABSOLUTE 0.64 10/3/uL (0.67-4.30); MEAN CORPUS HGB CONC 30.6 g/dL (32.0-36.0); MEAN CORPUSCULAR HEMOGLOB 30.4 pg (26.0-34.0); MONOCYTES 5.9 %; MONOCYTES ABSOLUTE 1.27 10/3/uL (0.21-1.20); NEUTROPHILS 88.3 %; NEUTROPHILS ABSOLUTE 19.11 10/3/uL (2.02-8.40); NUCLEATED RED BLOOD CELLS 0.4 /100WBC (0-0); RBC DISTRIBUTION WIDTH 16.6 % (12.0-16.0); RED CELL COUNT 3.13 10/6/uL (4.0-5.6); WHITE BLOOD CELLS 21.6 10/3/uL (4.5-10.5)
[2016-11-16 04:05] LABS: MANUAL DIFF NO %
[2016-11-16 04:06] LABS: INTERNATIONAL NORMAL RATI 1.7 UNITS (-)
[2016-11-16 04:09] LABS: PLATELET COUNT 135 10/3/uL (150-400)
[2016-11-16 04:22] LABS: CALCIUM, SERUM 9.7 MG/DL (8.5-10.4); CHLORIDE, SERUM 117 MMOL/L (96-112); CO2 (CARBON DIOXIDE) 34 MMOL/L (24-34); CREATININE 1.23 MG/DL (0.55-1.02); GFR AFRICAN AMERICAN 53 ML/MIN (>=60); GFR NON AFRICAN AMERICAN 45 ML/MIN (>=60); GLUCOSE, SERUM 185 MG/DL (60-99); PHOSPHORUS, SERUM 1.8 MG/DL (2.5-4.5); POTASSIUM, SERUM 4.1 MMOL/L (3.5-5.3); SGOT(AST) 19 U/L (5-40); SGPT(ALT) 29 U/L (5-65); TOTAL BILIRUBIN 0.8 MG/DL (0-1.2); TOTAL PROTEIN 6.1 G/DL (6.0-8.5); VANCOMYCIN TROUGH 17.8 MCG/ML (10.0-20.0)
[2016-11-16 04:24] LABS: ALKALINE PHOSPHATASE 97 U/L (45-117); BUN (BLOOD UREA NITROGEN) 128 MG/DL (6-23); GLOBULIN 3.1 G/DL (2.5-4.1); SODIUM, SERUM 159 MMOL/L (135-148)
[2016-11-16 05:59] LABS: PLATELET ESTIMATE SLT DEC (ADEQUATE); POIKILOCYTOSIS 1+ (5-10/OIF) (0-5/OIF); RBC MORPHOLOGY ABN (NORMAL)
[2016-11-17 03:50] LABS: HEMATOCRIT 29.7 % (36.0-48.0); HEMOGLOBIN 9.1 g/dL (12.0-16.0); MEAN CORPUS HGB CONC 30.6 g/dL (32.0-36.0); MEAN CORPUSCULAR HEMOGLOB 30.4 pg (26.0-34.0); MEAN CORPUSCULAR VOLUME 99.3 fL (80-100); MEAN PLATELET VOLUME 12.2 fL (9.2-13.0); PLATELET COUNT 98 10/3/uL (150-400); RBC DISTRIBUTION WIDTH 16.2 % (12.0-16.0); RED CELL COUNT 2.99 10/6/uL (4.0-5.6); WHITE BLOOD CELLS 18.1 10/3/uL (4.5-10.5)
[2016-11-17 03:57] LABS: MANUAL DIFF YES %
[2016-11-17 04:00] LABS: INTERNATIONAL NORMAL RATI 1.7 UNITS (-)
[2016-11-17 04:17] LABS: CALCIUM, SERUM 9.4 MG/DL (8.5-10.4); CHLORIDE, SERUM 118 MMOL/L (96-112); CO2 (CARBON DIOXIDE) 38 MMOL/L (24-34); CREATININE 1.41 MG/DL (0.55-1.02); GFR AFRICAN AMERICAN 45 ML/MIN (>=60); GFR NON AFRICAN AMERICAN 38 ML/MIN (>=60); GLUCOSE, SERUM 186 MG/DL (60-99); POTASSIUM, SERUM 4.1 MMOL/L (3.5-5.3)
[2016-11-17 04:28] LABS: DIGOXIN 1.8 NG/ML (0.8-2.0); SODIUM, SERUM 160 MMOL/L (135-148)
[2016-11-17 04:39] LABS: BUN (BLOOD UREA NITROGEN) 156 MG/DL (6-23)
[2016-11-17 07:04] LABS: BAND NEUTROPHILS 14 %; EOSINOPHILS 6 %; EOSINOPHILS ABSOLUTE (CALC) 1.09 10/3/uL (0.0-0.53); IMMATURE GRANS ABSOLUTE (CALC) 0.36 10/3/uL (0.0-0.11); LYMPHOCYTES 7 %; LYMPHOCYTES ABSOLUTE (CALC) 1.27 10/3/uL (0.67-4.30); METAMYELOCYTES 1 %; MONOCYTES 3 %; MONOCYTES ABSOLUTE (CALC) 0.54 10/3/uL (0.21-1.20); MYELOCYTES 1 %; NEUTROPHILS ABSOLUTE (CALC) 14.84 10/3/uL (2.02-8.40); NUCLEATED RED BLOOD CELLS 1 /100WBC (0); PLATELET ESTIMATE DEC (ADEQUATE); SEGMENTED NEUTROPHIL (0) 68 %; TOTAL NUCLEATED CELLS 100; TOXIC GRANULATION 1+
[2016-11-17 07:05] LABS: RBC MORPHOLOGY NORM (NORMAL); REACTIVE LYMPHS OCC (0-2%) (0-5%)
[2016-11-17 20:17] LABS: CHLORIDE, SERUM 116 MMOL/L (96-112); CO2 (CARBON DIOXIDE) 34 MMOL/L (24-34); CREATININE 1.51 MG/DL (0.55-1.02); GFR AFRICAN AMERICAN 41 ML/MIN (>=60); GFR NON AFRICAN AMERICAN 35 ML/MIN (>=60); POTASSIUM, SERUM 4.4 MMOL/L (3.5-5.3)
[2016-11-17 20:31] LABS: BUN (BLOOD UREA NITROGEN) 160 MG/DL (6-23); GLUCOSE, SERUM 241 MG/DL (60-99); SODIUM, SERUM 156 MMOL/L (135-148)
[2016-11-18 04:20] LABS: BASOPHILS 0.2 %; BASOPHILS ABSOLUTE 0.05 10/3/uL (0.0-0.16); EOSINOPHILS 5.6 %; EOSINOPHILS ABSOLUTE 1.23 10/3/uL (0.0-0.53); HEMATOCRIT 29.1 % (36.0-48.0); HEMOGLOBIN 8.6 g/dL (12.0-16.0); IMMATURE GRANULOCYTES ABSOLUTE 0.23 10/3/uL (0.0-0.11); LYMPHOCYTES 6.8 %; LYMPHOCYTES ABSOLUTE 1.49 10/3/uL (0.67-4.30); MEAN CORPUS HGB CONC 29.6 g/dL (32.0-36.0); MEAN CORPUSCULAR HEMOGLOB 30.3 pg (26.0-34.0); MONOCYTES 4.7 %; MONOCYTES ABSOLUTE 1.04 10/3/uL (0.21-1.20); NEUTROPHILS 81.7 %; NEUTROPHILS ABSOLUTE 17.93 10/3/uL (2.02-8.40); PLATELET COUNT 95 10/3/uL (150-400); RBC DISTRIBUTION WIDTH 16.5 % (12.0-16.0); RED CELL COUNT 2.84 10/6/uL (4.0-5.6)
[2016-11-18 04:21] LABS: MANUAL DIFF NO %; MEAN CORPUSCULAR VOLUME 102.5 fL (80-100)
[2016-11-18 04:35] LABS: CALCIUM, SERUM 9.2 MG/DL (8.5-10.4); CHLORIDE, SERUM 111 MMOL/L (96-112); CO2 (CARBON DIOXIDE) 33 MMOL/L (24-34); CREATININE 1.55 MG/DL (0.55-1.02); GFR AFRICAN AMERICAN 40 ML/MIN (>=60); GFR NON AFRICAN AMERICAN 34 ML/MIN (>=60); GLUCOSE, SERUM 196 MG/DL (60-99); POTASSIUM, SERUM 4.5 MMOL/L (3.5-5.3); SODIUM, SERUM 152 MMOL/L (135-148)
[2016-11-18 04:38] LABS: ALBUMIN 2.3 G/DL (3.5-5.0); PHOSPHORUS, SERUM 3.2 MG/DL (2.5-4.5)
[2016-11-18 04:48] LABS: BUN (BLOOD UREA NITROGEN) 162 MG/DL (6-23)
[2016-11-18 05:23] LABS: INTERNATIONAL NORMAL RATI 1.6 UNITS (-); PROTIME (NOT ORD) 19.1 SEC (12.0-14.5)
[2016-11-18 05:24] LABS: PARTIAL THROMBO TIME 74.1 SEC (22.5-37.2)
[2016-11-18 10:07] LABS: ALLENS TEST Pos; BE (BASE EXCESS) 3.1 MEQ/L (0 +/- 2.5); CARBOXYHEMOGLOBIN 1.7 % (0-3); HCO3 (ACTUAL BICARBONATE) 33.2 MEQ/L (23-27); HEMOBLOGIN CONTENT 10.9 G/DL (12-16); INSTRUMENT SERIAL # 11843; METHEMOGLOBIN 0.1 % (0-3); MODE APRV; O2 CONTENT 13.2 VOL% (18-24); OPERATOR ID 35188; PCO2 (CO2 TENSION) 88 MMHG (35-45); PO2 (O2 TENSION) 59 MMHG (79-93); SAMPLE Arterial
[2016-11-19 04:10] LABS: PARTIAL THROMBO TIME 61.5 SEC (22.5-37.2)
[2016-11-19 04:15] LABS: HEMOGLOBIN 7.5 g/dL (12.0-16.0); MEAN CORPUSCULAR HEMOGLOB 31.1 pg (26.0-34.0); MEAN PLATELET VOLUME 13.4 fL (9.2-13.0); NUCLEATED RED BLOOD CELLS 1.4 /100WBC (0-0); PLATELET COUNT 114 10/3/uL (150-400); RBC DISTRIBUTION WIDTH 16.1 % (12.0-16.0); RED CELL COUNT 2.41 10/6/uL (4.0-5.6)
[2016-11-19 04:16] LABS: INTERNATIONAL NORMAL RATI 1.7 UNITS (-); PROTIME (NOT ORD) 19.4 SEC (12.0-14.5)
[2016-11-19 04:18] LABS: HEMATOCRIT 23.3 % (36.0-48.0); MANUAL DIFF YES %; MEAN CORPUS HGB CONC 32.2 g/dL (32.0-36.0); MEAN CORPUSCULAR VOLUME 96.7 fL (80-100); WHITE BLOOD CELLS 28.3 10/3/uL (4.5-10.5)
[2016-11-19 04:19] LABS: CHLORIDE, SERUM 103 MMOL/L (96-112); CO2 (CARBON DIOXIDE) 31 MMOL/L (24-34); CREATININE 1.85 MG/DL (0.55-1.02); GFR AFRICAN AMERICAN 32 ML/MIN (>=60); GFR NON AFRICAN AMERICAN 28 ML/MIN (>=60); PHOSPHORUS, SERUM 3.5 MG/DL (2.5-4.5); POTASSIUM, SERUM 4.6 MMOL/L (3.5-5.3)
[2016-11-19 04:25] LABS: BAND NEUTROPHILS 4 %; EOSINOPHILS 11 %; EOSINOPHILS ABSOLUTE (CALC) 3.11 10/3/uL (0.0-0.53); LYMPHOCYTES 2 %; LYMPHOCYTES ABSOLUTE (CALC) 0.57 10/3/uL (0.67-4.30); MONOCYTES 2 %; MONOCYTES ABSOLUTE (CALC) 0.57 10/3/uL (0.21-1.20); NEUTROPHILS ABSOLUTE (CALC) 24.06 10/3/uL (2.02-8.40); SEGMENTED NEUTROPHIL (0) 81 %; TOTAL NUCLEATED CELLS 100
[2016-11-19 04:26] LABS: GIANT PLATELET FEW; PLATELET ESTIMATE SLT DEC (ADEQUATE); RBC MORPHOLOGY NORM (NORMAL)
[2016-11-19 04:29] LABS: SODIUM, SERUM 143 MMOL/L (135-148)
[2016-11-19 04:30] LABS: BUN (BLOOD UREA NITROGEN) 175 MG/DL (6-23); GLUCOSE, SERUM 147 MG/DL (60-99)
[2016-11-19 06:40] LABS: PROCALCITONIN 1.54 ng/mL (<0.5)
== END 2016-11-19 16:35 | disposition expired | DRG 3 ==
LOC: SDC/OF 06:00 → CVICU 13:21
PROVIDERS: Anesthesiology; Internal Medicine Cardiovascular Disease; Internal Medicine Critical Care Medicine; Internal Medicine Nephrology; Internal Medicine Pulmonary Disease; Nurse Practitioner Family; Thoracic Surgery (Cardiothoracic Vascular Surgery)
PROC: 0PH000Z Insertion of Rigid Plate Internal Fixation Device into Sternum, Open Approach (ICD-10-PCS; 2016-10-22)
PROC: B246ZZ4 Ultrasonography of Right and Left Heart, Transesophageal (ICD-10-PCS; 2016-10-22)
PROC: 5A1221Z Performance of Cardiac Output, Continuous (ICD-10-PCS; 2016-10-22)
PROC: 021009W Bypass Coronary Artery, One Artery from Aorta with Autologous Venous Tissue, Open Approach (ICD-10-PCS; principal; 2016-10-22 07:30)
PROC: 02UG0JZ Supplement Mitral Valve with Synthetic Substitute, Open Approach (ICD-10-PCS; 2016-10-22 07:30)
PROC: 02RF08Z Replacement of Aortic Valve with Zooplastic Tissue, Open Approach (ICD-10-PCS; 2016-10-22 07:30)
PROC: 5A1945Z Respiratory Ventilation, 24-96 Consecutive Hours (ICD-10-PCS; 2016-10-22 07:30)
PROC: 06BP4ZZ Excision of Right Saphenous Vein, Percutaneous Endoscopic Approach (ICD-10-PCS; 2016-10-22 07:30)
PROC: 5A1955Z Respiratory Ventilation, Greater than 96 Consecutive Hours (ICD-10-PCS; 2016-10-25)
PROC: 0BH17EZ Insertion of Endotracheal Airway into Trachea, Via Natural or Artificial Opening (ICD-10-PCS; 2016-10-25)
PROC: 02HV33Z Insertion of Infusion Device into Superior Vena Cava, Percutaneous Approach (ICD-10-PCS; 2016-10-29)
PROC: B5181ZA Fluoroscopy of Superior Vena Cava using Low Osmolar Contrast, Guidance (ICD-10-PCS; 2016-10-29)
PROC: 30233N1 Transfusion of Nonautologous Red Blood Cells into Peripheral Vein, Percutaneous Approach (ICD-10-PCS; 2016-11-01)
PROC: 0JH606Z Insertion of Pacemaker, Dual Chamber into Chest Subcutaneous Tissue and Fascia, Open Approach (ICD-10-PCS; 2016-11-04)
PROC: 02H63JZ Insertion of Pacemaker Lead into Right Atrium, Percutaneous Approach (ICD-10-PCS; 2016-11-04)
PROC: 02HK3JZ Insertion of Pacemaker Lead into Right Ventricle, Percutaneous Approach (ICD-10-PCS; 2016-11-04)
PROC: 0BH17EZ Insertion of Endotracheal Airway into Trachea, Via Natural or Artificial Opening (ICD-10-PCS; 2016-11-05)
PROC: 5A1955Z Respiratory Ventilation, Greater than 96 Consecutive Hours (ICD-10-PCS; 2016-11-05)
PROC: 0B113F4 Bypass Trachea to Cutaneous with Tracheostomy Device, Percutaneous Approach (ICD-10-PCS; 2016-11-10)
PROC: 0DH63UZ Insertion of Feeding Device into Stomach, Percutaneous Approach (ICD-10-PCS; 2016-11-11)
PROC: 0B988ZX Drainage of Left Upper Lobe Bronchus, Via Natural or Artificial Opening Endoscopic, Diagnostic (ICD-10-PCS; 2016-11-12)
PROC: 05HM33Z Insertion of Infusion Device into Right Internal Jugular Vein, Percutaneous Approach (ICD-10-PCS; 2016-11-14)
PROC: B543ZZA Ultrasonography of Right Jugular Veins, Guidance (ICD-10-PCS; 2016-11-14)
DX: I25.110 Atherosclerotic heart disease of native coronary artery with unstable angina pectoris (principal); A41.89 Other specified sepsis; R65.21 Severe sepsis with septic shock; G92 Toxic encephalopathy; J15.0 Pneumonia due to Klebsiella pneumoniae; J90 Pleural effusion, not elsewhere classified; J95.821 Acute postprocedural respiratory failure; E87.0 Hyperosmolality and hypernatremia; Z99.11 Dependence on respirator [ventilator] status; I97.89 Other postprocedural complications and disorders of the circulatory system, not elsewhere classified; J98.11 Atelectasis; D62 Acute posthemorrhagic anemia; E44.0 Moderate protein-calorie malnutrition; I48.92 Unspecified atrial flutter; R13.10 Dysphagia, unspecified; D69.6 Thrombocytopenia, unspecified; I48.2 Chronic atrial fibrillation; I10 Essential (primary) hypertension; E86.0 Dehydration; I49.5 Sick sinus syndrome; J44.9 Chronic obstructive pulmonary disease, unspecified; I34.0 Nonrheumatic mitral (valve) insufficiency; I35.0 Nonrheumatic aortic (valve) stenosis; F17.210 Nicotine dependence, cigarettes, uncomplicated; K21.9 Gastro-esophageal reflux disease without esophagitis; Z88.5 Allergy status to narcotic agent; Z88.7 Allergy status to serum and vaccine; Z82.49 Family history of ischemic heart disease and other diseases of the circulatory system; Z79.899 Other long term (current) drug therapy; Z79.82 Long term (current) use of aspirin; Z79.02 Long term (current) use of antithrombotics/antiplatelets; E11.9 Type 2 diabetes mellitus without complications; G89.29 Other chronic pain; Z79.4 Long term (current) use of insulin; E83.52 Hypercalcemia; K31.84 Gastroparesis; Z66 Do not resuscitate; Z51.5 Encounter for palliative care
CPT/HCPCS: 31500; 31622; 31646; 31720; 33208; 36415; 36430; 36556; 36569; 36593; 36600; 49440; 70450; 71010; 71020; 71250; 74000; 80048; 80053; 80069; 80076; 80162; 80202; 81001; 82140; 82330; 82803; 82805; 82947; 82962; 83036; 83540; 83550; 83735; 83880; 84100; 84132; 84145; 84295; 84443; 85014; 85018; 85025; 85049; 85347; 85384; 85576; 85576-59; 85610; 85730; 86709; 86850; 86900; 86901; 86920; 87040; 87070; 87077; 87186; 87205; 87641; 88112; 88305; 89051; 89190; 92960; 93005; 93312; 93320; 93325; 94002; 94003; 94640; 94660; 94770; 95816; 95819; A9270-GY; C1713; C1751; C1769; C1785; C1892; C1894; C1898; C9113; J0282; J0330; J0690; J0692; J1120; J1160; J1162; J1170; J1205; J1580; J1644; J1940; J2150; J2250; J2370; J2405; J2440; J2720; J2765; J2930; J2997; J3010; J3370; J3411; J3475; J3480; P9016; P9045; P9047; Q9967